=== PATIENT | male | born 1975 | race Caucasian/White ===

== ENCOUNTER → 2021-04-19 13:44 | Outpatient (BNVA) | payer MEDICARE, MEDICAID, SELFPAY | PROVIDERS: Family Provider Nurse Practitioner Family; PCP Nurse Practitioner Family; Visit Provider Nurse Practitioner Family | DX: K92.1 Melena (principal); R10.9 Unspecified abdominal pain; B19.20 Unspecified viral hepatitis C without hepatic coma; Z79.899 Other long term (current) drug therapy; Z13.6 Encounter for screening for cardiovascular disorders; K21.9 Gastro-esophageal reflux disease without esophagitis; L28.2 Other prurigo; M54.9 Dorsalgia, unspecified; F15.10 Other stimulant abuse, uncomplicated; E55.9 Vitamin D deficiency, unspecified; F32.9 Major depressive disorder, single episode, unspecified; Z87.898 Personal history of other specified conditions | CPT/HCPCS: 80053; 80061; 81003; 82150; 82306; 82550; 83036; 83690; 84439; 84443; 85025; 86803; 87522; 87806 ==

== ENCOUNTER 2021-05-16 08:24 | Outpatient (CLI) | payer MEDICARE, MEDICAID, SELFPAY ==
--- NOTE | 2021-05-16 08:45 | US_ITS ---
WS: [id number] Complete ABDOMINAL ULTRASOUND HISTORY: R10.9 - Unspecified abdominal pain COMPARISON: None available. Liver: 14.6 cm in length. Liver is normal size and echogenicity with no mass or intrahepatic dilatati on. Gallbladder: Normally distended with no gallstones, wall thickening or pericholecystic fluid. Gallbladder wall thickness: 0.3 cm. Pancreas: Normal size and echogenicity. CBD: 0.2 cm. Right kidney: 10.1 cm x 5.8 cm x 5.3 cm. No mass, cortical thickening or hydronephrosis. Left kidney: 9.9 cm x 5.6 cm x 4.8 cm. No mass, cortical thickening or hydronephrosis. Spleen: Normal size and echogenicity. Abdominal aorta and IVC are within normal limits. No ascites. US/US abdomen complete* [id number] IMPRESSION: Normal complete abdomen ultrasound.
== END 2021-05-16 08:25 | disposition home or self-care (01) ==
PROVIDERS: PCP Nurse Practitioner Family; Visit Provider Nurse Practitioner Family
DX: R10.9 Unspecified abdominal pain (principal)
CPT/HCPCS: 76700

== ENCOUNTER → 2021-05-23 14:53 | Outpatient (BNVA) | payer MEDICARE, MEDICAID, SELFPAY | PROVIDERS: PCP Nurse Practitioner Family; Visit Provider Nurse Practitioner Family | DX: R11.2 Nausea with vomiting, unspecified (principal); Z01.812 Encounter for preprocedural laboratory examination; K21.9 Gastro-esophageal reflux disease without esophagitis; F32.9 Major depressive disorder, single episode, unspecified | CPT/HCPCS: 87635 ==

== ENCOUNTER 2021-05-26 07:58 | Day surgery (SDC) | payer MEDICARE, MEDICAID, SELFPAY ==
[2021-05-26 08:19] VITALS: BP 127/85; PULSE 84; RESP 18; TEMP 36.4; O2SAT 100
--- NOTE | 2021-05-26 08:51 | P.ANESASSM_ITS ---
Documented by User: Werner Franco Jr, [employer] CLAIM[employer] ADJUSTER 05/26/21 08:55 Pre-Anesthetic Assessment Pre-Anesthetic Assessment: Height/Weight: Height 1.8 m Weight 74.843 kg Temp Pulse Resp BP Pulse Ox 97.6 F 84 18 127/85 100 05/26/21 08:19 05/26/21 08:19 05/26/21 08:19 05/26/21 08:19 05/26/21 08:19 Preop Diagnosis: N/V Proposed Procedure: Operation Date: 05/26/21 09:00 Proposed Procedures p EGD 19241 R11.2(Not Applicable) - Barry Coffman MD Familial anesthetic complications: none Was Beta Nikole taken within 24 hours: N/A Was Clonidine taken within 24 hours: N/A Last intake: Intake Last Liquid Date 06/25/21 Last Liquid Time 23:00 Last Solid Date 05/25/21 Last Solid Time 23:00 Last Intake: 23:00 Social: Social History: Tobacco and No alcohol Packs per day: 2ppd Pack years: 30 Exam: Pre-Anes Outpt Exam: alert, oriented x 3, clear to auscultation bilaterally and regular rate & rhythm Airway: Submandibular: WNL Cervical ROM: WNL MP: 1 Dentition: False (upper, 4 teeth on bottom) Pulmonary: Pulmonary: COPD, JOHNSON and SOB CV/HEM: CV/HEM: None reported : : None reported Hepatic: Hepatic: Cirrohsis (C, treated) GI: GI: GERD Metabolic: Metabolic: None reported Musc/skel: Musc/skel: OA/DJD Neuropsych: Neuropsych: Anxiety, Bipolar, Depression, HAYNES and Seizure (last grand mal 2-3 weeks ago) Anesthetic Plan: ASA status: 3 Anesthesia: MAC PFSH Anesthesia PFSH: Medical History Abdominal pain Back pain Back pain Blood in stool Chronic nausea Depression Epilepsy GERD (gastroesophageal reflux disease) Hepatitis C without hepatic coma History of intravenous drug use in remission Hypertension screen Methamphetamine abuse, episodic Nausea Pruritic rash Vitamin D deficiency Vitamin D deficiency Surgical History Status post knee surgery Family History Other CAD (coronary artery disease) Cancer Hypertension Social History Alcohol intake: former Data Anesthesia Cardiac Studies: No Data to Display Documented by User: Willard Key 05/26/21 14:40 PFSH Anesthesia PFSH: Medical History Abdominal pain Back pain Back pain Blood in stool Chronic nausea Depression Epilepsy GERD (gastroesophageal reflux disease) Hepatitis C without hepatic coma History of intravenous drug use in remission Hypertension screen Methamphetamine abuse, episodic Nausea Pruritic rash Vitamin D deficiency Vitamin D deficiency Surgical History Status post knee surgery Family History Other CAD (coronary artery disease) Cancer Hypertension Social History Alcohol intake: former Data Anesthesia Cardiac Studies: No Data to Display
[2021-05-26] MEDS: sodium chloride 0.9% 1,000 ML 30 ML IV (08:55)
--- NOTE | 2021-05-26 09:20 | P.HP_ITS ---
Same Day Surgery H&P Indication for Procedure/HPI DATE OF PROCEDURE: May 26, 2021 CHIEF COMPLAINT/INDICATIONFOR SURGICAL PROCEDURE: Nausea and vomiting PREOP DIAGNOSIS: N/V PLANNED PROCEDRUE: Operation Date: 05/26/21 09:00 Proposed Procedures p EGD 53711 R11.2(Not Applicable) - Barry Coffman MD Medications/Allergies* Home Medications Medication Instructions Recorded Confirmed Type duloxetine 30 mg capsule,delayed 30 mg PO DAILY 04/19/21 05/26/21 History release duloxetine 60 mg capsule,delayed 60 mg PO DAILY 04/19/21 05/26/21 History release levetiracetam 750 mg tablet 1,500 mg PO BID tab 04/19/21 05/26/21 History paliperidone palmitate 234 mg/1.5 234 mg IM Q30D 04/19/21 05/26/21 History mL intramuscular syringe prazosin 5 mg capsule 5 mg PO DAILY 04/19/21 05/26/21 History trazodone 300 mg tablet 300 mg PO DAILY 04/19/21 05/26/21 History Allergies/Adverse Reactions Allergy/AdvReac Type Severity Reaction Status Date / Time aspirin [From [employer] Aspirin] Allergy ulcer Verified 05/26/21 08:24 Current Medications: Generic Name Dose Route Start Last Admin Trade Name Freq PRN Reason Stop Dose Admin Sodium Chloride 1,000 mls @ 30 mls/hr 05/26/21 08:15 05/26/21 08:55 Sodium Chloride 0.9% IV 30 mls/hr .Q24H JONO Administration Pertinent History/Comorbid Conditions* Medical History (Updated 05/17/21 @ 14:59 by Barry Coffman MD) Abdominal pain Back pain Back pain Blood in stool Chronic nausea Depression Epilepsy GERD (gastroesophageal reflux disease) Hepatitis C without hepatic coma History of intravenous drug use in remission Hypertension screen Methamphetamine abuse, episodic Nausea Pruritic rash Vitamin D deficiency Vitamin D deficiency Surgical History (Updated 04/19/21 @ 13:39 by ISAAK Gonzales) Status post knee surgery Family History (Updated 04/19/21 @ 13:23 by Natalie Briggs LPN) CAD (coronary artery disease) Cancer Hypertension Social History Alcohol intake: former Pertinent Exam Findings alert, oriented x 3, clear to auscultation bilaterally, regular rate & rhythm, operative site marked and procedure specific exam findings Recommendations Surgery/Procedure today Coding Level of Care Code Acute [employer] for Chg Fwd
[2021-05-26 09:30] VITALS: BP 117/81; PULSE 79; RESP 16; TEMP 36.7; O2SAT 98
[2021-05-26 09:41] VITALS: BP 122/79; PULSE 75; RESP 20; O2SAT 100
== END 2021-05-26 10:10 | disposition home or self-care (01) ==
PROVIDERS: PCP Nurse Practitioner Family; Visit Provider Internal Medicine
PROC: 0DJ08ZZ Inspection of Upper Intestinal Tract, Via Natural or Artificial Opening Endoscopic (ICD-10-PCS; CPT 43235; principal; 2021-05-26 09:00)
DX: R11.2 Nausea with vomiting, unspecified (principal); Z86.19 Personal history of other infectious and parasitic diseases; E55.9 Vitamin D deficiency, unspecified; Z82.49 Family history of ischemic heart disease and other diseases of the circulatory system; F17.210 Nicotine dependence, cigarettes, uncomplicated
CPT/HCPCS: 43235; 96360; J2704; J7030

== ENCOUNTER → 2021-09-19 11:20 | Outpatient (BNVA) | payer MEDICARE, MEDICAID, SELFPAY | PROVIDERS: PCP Nurse Practitioner Family; Visit Provider Nurse Practitioner | DX: F41.9 Anxiety disorder, unspecified (principal); F32.9 Major depressive disorder, single episode, unspecified; F17.218 Nicotine dependence, cigarettes, with other nicotine-induced disorders; F51.01 Primary insomnia; F51.5 Nightmare disorder; F15.20 Other stimulant dependence, uncomplicated; F12.20 Cannabis dependence, uncomplicated; F43.12 Post-traumatic stress disorder, chronic; F41.1 Generalized anxiety disorder | CPT/HCPCS: 99215 ==

== ENCOUNTER → 2021-11-02 12:28 | Outpatient (BNVA) | payer MEDICARE, MEDICAID, SELFPAY | PROVIDERS: PCP Nurse Practitioner Family; Visit Provider Nurse Practitioner | DX: F43.12 Post-traumatic stress disorder, chronic (principal); F41.9 Anxiety disorder, unspecified; F32.9 Major depressive disorder, single episode, unspecified; F51.01 Primary insomnia; F51.5 Nightmare disorder; F17.218 Nicotine dependence, cigarettes, with other nicotine-induced disorders; F15.20 Other stimulant dependence, uncomplicated; F12.20 Cannabis dependence, uncomplicated | CPT/HCPCS: 96372; 99214 ==

== ENCOUNTER → 2021-11-09 12:30 | Outpatient (BNVA) | payer MEDICARE, MEDICAID, SELFPAY | PROVIDERS: PCP Nurse Practitioner Family; Visit Provider Nurse Practitioner | DX: F43.12 Post-traumatic stress disorder, chronic (principal); F41.9 Anxiety disorder, unspecified; F32.9 Major depressive disorder, single episode, unspecified; F51.01 Primary insomnia; F51.5 Nightmare disorder | CPT/HCPCS: 96372; 99214 ==

== ENCOUNTER → 2021-11-20 15:07 | Outpatient (BNVA) | payer MEDICARE, MEDICAID, SELFPAY | PROVIDERS: PCP Nurse Practitioner Family; Visit Provider Nurse Practitioner Family | DX: D64.9 Anemia, unspecified (principal); E55.9 Vitamin D deficiency, unspecified; Z13.6 Encounter for screening for cardiovascular disorders; Z79.899 Other long term (current) drug therapy; R42 Dizziness and giddiness; K92.1 Melena | CPT/HCPCS: 80053; 80061; 81003; 82306; 82607; 83036; 83550; 83921; 84439; 84443; 85025 ==

== ENCOUNTER → 2021-11-22 16:14 | Outpatient (BNVA) | payer MEDICARE, MEDICAID, SELFPAY | PROVIDERS: PCP Nurse Practitioner Family; Visit Provider Nurse Practitioner Family | DX: K92.1 Melena (principal) | CPT/HCPCS: 82270 ==

== ENCOUNTER → 2021-12-05 11:38 | Outpatient (BNVA) | payer MEDICARE, MEDICAID, SELFPAY | PROVIDERS: PCP Nurse Practitioner Family; Visit Provider Nurse Practitioner | DX: F17.210 Nicotine dependence, cigarettes, uncomplicated (principal); F12.20 Cannabis dependence, uncomplicated; F15.21 Other stimulant dependence, in remission; F43.12 Post-traumatic stress disorder, chronic; F41.9 Anxiety disorder, unspecified; F32.9 Major depressive disorder, single episode, unspecified; F51.5 Nightmare disorder; F51.01 Primary insomnia | CPT/HCPCS: 96372; 99214 ==

== ENCOUNTER → 2021-12-11 13:22 | Outpatient (BNVA) | payer MEDICARE, MEDICAID, SELFPAY | PROVIDERS: PCP Nurse Practitioner Family; Referring Provider Nurse Practitioner Family; Visit Provider Specialist | DX: G40.909 Epilepsy, unspecified, not intractable, without status epilepticus (principal); G40.409 Other generalized epilepsy and epileptic syndromes, not intractable, without status epilepticus; F17.210 Nicotine dependence, cigarettes, uncomplicated | CPT/HCPCS: 99204 ==

== ENCOUNTER → 2022-01-04 13:07 | Outpatient (BNVA) | payer MEDICARE, MEDICAID, SELFPAY | PROVIDERS: PCP Nurse Practitioner Family; Visit Provider Nurse Practitioner | DX: Z79.899 Other long term (current) drug therapy (principal); F43.12 Post-traumatic stress disorder, chronic; F41.9 Anxiety disorder, unspecified; F32.9 Major depressive disorder, single episode, unspecified; F51.01 Primary insomnia; F51.5 Nightmare disorder; F17.218 Nicotine dependence, cigarettes, with other nicotine-induced disorders; F12.20 Cannabis dependence, uncomplicated; F15.21 Other stimulant dependence, in remission | CPT/HCPCS: 96372; 99214 ==

== ENCOUNTER 2022-01-26 13:02 | Outpatient (CLI) | payer MEDICARE, MEDICAID, SELFPAY ==
--- NOTE | 2022-01-26 13:12 | CT_ITS ---
WS: [id number] CT HEAD TECHNIQUE: Noncontrast CT of the head obtained from the skullbase to the vertex. CLINICAL INFORMATION: R55 - Syncope and collapse COMPARISON: MRI and CT September 2017 DLP: 1008.[address] scans at [facility] use at least one of these dose optimization techniques: automated e xposure control; mA and/or kV adjustment per patient size (includes targeted exams where dose is matc hed to clinical indication); or iterative reconstruction. FINDINGS: No evidence of intracranial hemorrhage or mass effect. Ventricular system and basal cisterns are shaikh nt. No extra-axial fluid collections. No evidence of mass or mass effect. Normal mullen-white different iation. Mastoid air cells are well aerated. Mild mucosal thickening in the ethmoid air cells. Paranasal sinus es are otherwise well aerated. Normal posterior nasopharynx. CT/CT head wo con* [id number] IMPRESSION: 1. No evidence of intracranial hemorrhage or mass effect. 2. Mild mucosal thickening in the ethmoid air cells. 3. Mild posterior parietal parenchymal volume loss near the vertex better appr eciated on the prior MRI. 4. No acute intracranial findings.
== END 2022-01-26 13:03 | disposition home or self-care (01) ==
LOC: RAD 13:04
PROVIDERS: PCP Nurse Practitioner Family; Visit Provider Family Medicine
DX: R55 Syncope and collapse (principal)
CPT/HCPCS: 70450

== ENCOUNTER → 2022-02-02 09:10 | Outpatient (BNVA) | payer MEDICARE, MEDICAID, SELFPAY | PROVIDERS: PCP Nurse Practitioner Family; Visit Provider Nurse Practitioner | DX: F43.12 Post-traumatic stress disorder, chronic (principal); F41.9 Anxiety disorder, unspecified; F32.9 Major depressive disorder, single episode, unspecified; F51.01 Primary insomnia; F51.5 Nightmare disorder; F17.218 Nicotine dependence, cigarettes, with other nicotine-induced disorders; F12.20 Cannabis dependence, uncomplicated; F15.21 Other stimulant dependence, in remission; Z79.899 Other long term (current) drug therapy | CPT/HCPCS: 99214 ==

== ENCOUNTER → 2022-03-15 13:34 | Outpatient (BNVA) | payer MEDICARE, MEDICAID, SELFPAY | PROVIDERS: PCP Nurse Practitioner Family; Visit Provider Specialist | DX: G56.03 Carpal tunnel syndrome, bilateral upper limbs (principal); M65.331 Trigger finger, right middle finger; M65.341 Trigger finger, right ring finger; M65.4 Radial styloid tenosynovitis [de Quervain] | CPT/HCPCS: 73110; 99214; 99215 ==

== ENCOUNTER → 2022-07-04 10:23 | Outpatient (BNVA) | payer MEDICARE, MEDICAID, SELFPAY | PROVIDERS: PCP Nurse Practitioner Family; Referring Provider Specialist; Visit Provider Specialist | DX: G56.03 Carpal tunnel syndrome, bilateral upper limbs (principal); R56.9 Unspecified convulsions; R55 Syncope and collapse; F15.10 Other stimulant abuse, uncomplicated | CPT/HCPCS: 95812; 95816; 95910; 95912 ==

== ENCOUNTER → 2022-07-30 10:09 | Outpatient (BNVA) | payer MEDICARE, MEDICAID, SELFPAY | PROVIDERS: PCP Nurse Practitioner Family; Visit Provider Specialist | DX: G56.03 Carpal tunnel syndrome, bilateral upper limbs (principal); M65.341 Trigger finger, right ring finger; M65.331 Trigger finger, right middle finger; M65.4 Radial styloid tenosynovitis [de Quervain]; I73.00 Raynaud's syndrome without gangrene | CPT/HCPCS: 99214; 99215 ==

== ENCOUNTER 2022-08-07 06:06 | Day surgery (SDC) | payer MEDICARE, MEDICAID, SELFPAY ==
[2022-08-06 09:05] VITALS: BMI 26.4
[2022-08-07] VITALS (8 sets, daily range): BP systolic 123–151; BP diastolic 74–96; PULSE 63–83; RESP 12–18; TEMP 36.4–36.6; O2SAT 94–100
[2022-08-07] MEDS: CELEcoxib 200 mg Capsule 400 MG PO (08:20)
[2022-08-07] MEDS: sodium chloride 0.9% 1,000 ML 30 ML IV (08:45)
[2022-08-07] MEDS: acetaminophen 1,000 MG/100 ML PIGGYBACK 400 MG IV (09:18)
--- NOTE | 2022-08-07 11:55 | W.PM.OPSUD ---
Surgery/Procedure H&P Update DATE OF PROCEDURE: August 07, 2022 DATE H&P PERFORMED: 07/30/22 H&P UPDATE INFORMATION: I have reviewed H&P completed within last 30 days, I have examined patient prior to procedure, No changes to prior documentation and [place] is [place] [facility] date indicated PREOP DIAGNOSIS: Right carpal tunnel syndrome with triggering long and ring fingers PLANNED PROCEDURE: Operation Date: 08/07/22 10:40 Proposed Procedures p RIGHT CARPAL TUNNEL RELEASE WITH LONG AND RING FINGER TRIGGER RELEASE [id number] G56.00,M65.30(Right) - Nancy Perez MD s Trigger Finger Release(Right) - Nancy Perez MD Related Problem List Diagnoses (1) Carpal tunnel syndrome on right: (2) Acquired trigger finger of right ring finger: (3) Acquired trigger finger of right middle finger:
[2022-08-07] MEDS: ceFAZolin 2,000 MG in sodium chloride 0.9% (plus) 50 ML 100 MG IV (12:05)
--- NOTE | 2022-08-07 12:37 | ANES.PREANE2 ---
Pre-Anesthetic Assessment Height/Weight: Height 1.8 m Weight 86.183 kg Temp Pulse Resp BP Pulse Ox O2 Del Method 97.9 F 83 16 123/74 97 08/07/22 08:08 08/07/22 08:08 08/07/22 08:08 08/07/22 08:08 08/07/22 08:08 08/07/22 08:08 Preop Diagnosis: Right carpal tunnel syndrome with triggering long and ring fingers Operation Date: 08/07/22 10:40 Proposed Procedures p RIGHT CARPAL TUNNEL RELEASE WITH LONG AND RING FINGER TRIGGER RELEASE [id number] G56.00,M65.30(Right) - Nancy Perez MD s Trigger Finger Release(Right) - Nancy Perez MD Familial anesthetic complications: none Was Beta Nikole taken within 24 hours: N/A Was Clonidine taken within 24 hours: N/A Last intake: Intake Last Liquid Date 08/06/22 Last Liquid Time 20:00 Last Solid Date 08/06/22 Last Solid Time 20:00 Social Tobacco and No alcohol Drug abuse hx Exam alert, oriented x 3 and regular rate & rhythm Airway Submandibular: within normal limits Cervical ROM: within normal limits Mallampati: Class II Pulmonary Chronic Obstructive Pulmonary Disease CV/HEM Anemia Hepatic Hepatitis (C) GI Gastroesophageal Reflux Disease Neuropsych Anxiety, Depression and Seizure Anesthetic Plan ASA status: 3 Anesthesia: General Medications/Allergies Home Medications Medication Instructions Recorded Confirmed Last Taken Type levetiracetam 750 mg tablet 1,500 mg PO BID 30 days #120 tabs 12/11/21 08/07/22 08/07/22 Rx (Keppra) omeprazole 40 mg capsule,delayed 40 mg PO DAILY 30 days #90 caps 04/30/22 08/07/22 08/07/22 Rx release fluoxetine 20 mg capsule (Prozac) 20 mg PO .morning #30 caps 07/23/22 08/07/22 08/07/22 Rx paliperidone palm (3-month) 546 546 mg (1.75 mL) IM .every 3 07/23/22 08/07/22 1 Month Ago Rx mg/1.75 mL intramuscular syringe months. #1.75 mL ~07/08/22 (Invega Trinza) trazodone 300 mg tablet 300 mg PO BEDTIME #90 tabs 07/23/22 08/07/22 08/06/22 Rx prazosin 5 mg capsule 7 mg PO BEDTIME 08/06/22 08/07/22 08/06/22 History naproxen sodium 220 mg tablet 220 mg PO BID PRN Pain 08/07/22 08/07/22 08/07/22 History (Aleve) Allergies Allergy/AdvReac Type Severity Reaction Status Date / Time aspirin [From Anel Aspirin] Allergy ulcer Verified 08/07/22 08:15 Current Medications Generic Name Dose Route Start Last Admin Trade Name Connie PRN Reason Stop Dose Admin Sodium Chloride 1,000 mls @ 30 mls/hr 08/07/22 08:00 08/07/22 08:45 Sodium Chloride 0.9% IV 08/08/22 07:59 30 mls/hr .Q24H JONO Administration PFSH Anesthesia Medical History Abdominal pain Anemia Anxiety and depression Back pain Back pain Black tarry stools Blood in stool Cannabis dependence, uncomplicated Carpal tunnel syndrome of left wrist Chronic nausea Depression Epilepsy GERD (gastroesophageal reflux disease) Hepatitis C without hepatic coma History of intravenous drug use in remission Hypertension screen Insomnia Medication management Methamphetamine abuse, episodic Nausea Nicotine dependence, cigarettes, with other nicotine-induced disorders Nightmare Other stimulant dependence, uncomplicated Otitis media of both ears Post-traumatic stress disorder, chronic Pruritic rash Psychiatric care Vitamin B12 deficiency (dietary) anemia Vitamin D deficiency Vitamin D deficiency Wound abscess Surgical History Status post knee surgery Family History Other CAD (coronary artery disease) Cancer Hypertension Social History Smoking and tobacco status: current every day smoker cigarettes Packs smoked per day: 1.5 Years cigarettes smoked: 40 Quit status (tobacco): has tried quititng Number of times tried to quit tobacco: 2 Second hand smoke exposure: No Alcohol intake: former Data Anesthesia Cardiac Studies: No Data to Display
--- NOTE | 2022-08-07 13:47 | PM.OP ---
Operative Report Date of procedure: August 07, 2022 Pre-op diagnosis: Right carpal tunnel syndrome with triggering long and ring fingers Post-op diagnosis: Right carpal tunnel syndrome with triggering long and ring fingers Post-op findings: Very tight carpal canal with purplish discoloration of the median nerve. Very tight A1 pulleys, tendon changes to the long finger flexor tendons. Procedure done: Right carpal tunnel release, release of right long and ring finger triggering Specimens removed/disposition: None Pathology: none sent Surgeon: Nancy Perez Anesthesia: General (LMA, ASA 3) Estimated blood loss (mL): 2 Tourniquet time (min): 46 (At 250 mmHg) IV fluids (mL): 800 Urine output (mL): 0 (No Murdock) Complications: None Findings: Very tight carpal canal with purplish discoloration of the nerve. Thickened and tight A1 pulleys long and ring fingers with tendon damage, minimal, to the long finger flexors. Condition: stable Disposition: PACU (Then to same-day surgery for discharge to home) Brief History: This 46-year-old gentleman presented to my office with multiple complaints. Primarily, he has bilateral carpal tunnel syndrome with the right being worse than the left. He also has triggering of the long and ring fingers of the right hand. He complains of Raynaud's type phenomenon and he has de Quervain's tenosynovitis on the right hand as well. We discussed surgical intervention. We proceeded with carpal tunnel release and release of triggering of the long and ring fingers. He was advised that the de Quervain's would need to be at a separate occasion. Consents were signed and questions were answered. The patient was scheduled for surgical intervention and underwent this uneventfully today. Procedure: The patient was brought to the operating theater. He was transferred to the operating room table. Patient had a general anesthetic per LMA, ASA 3. The arm was exsanguinated, and the tourniquet was elevated to 250 mmHg for a total tourniquet time of 46 minutes. The patient was also given Ancef 2 g preoperatively. The arm was then prepped and draped with DuraPrep in usual fashion with the arm draped free. A surgical pause was performed. At the time, the surgical pause, we confirmed the site and side of surgery. We also confirmed the patient's identity, appropriate and timely administration of preoperative antibiotics and preoperative surgical markings. An incision was then made along the thenar crease. The incision crossed the wrist joint in a curvilinear fashion. Dissection continued through skin and soft tissues using a scalpel. The palmaris longus was identified along with the transverse carpal ligament. Each of these was released carefully to avoid injury to the median nerve. We were able to dissect gently into the carpal canal which was noted to be quite tight with significant compression across the median nerve. After release of the transverse carpal ligament, the nerve was visualized and was found to have purplish discoloration as well as some hourglass deformity at the site of compression. The canal was subsequently palpated to assure there was no bony encroachment upon the canal. There was a quite thickened fibrous tissue within the canal, and this was carefully opened longitudinally as well. The canal was then palpated distally and proximally to assure that my small finger was passed easily without impingement. Finding this to be so, attention was directed to closure. The wound was irrigated with ropivacaine plain. It was then closed with 3-0 nylon in an interrupted mattress fashion. At this point, attention was directed to the palm for release of triggering of the long and ring fingers. An incision was made along the distal palmar crease beneath the long and ring fingers. Dissection continued through the skin to the subcutaneous tissues using a scalpel. Blunt dissection was then utilized to spread soft tissues and allow access to the A1 rose. Each A1 rose was identified. It was then incised longitudinally and sharply using a knife. This was accomplished without difficulty and atraumatically. Once the A1 pulleys were released, tendons were brought up out of the wound and evaluated. There was noted to be tendon damage on the long finger tendon; however, this was very mild and did not threaten the viability of the tendons. Below each finger, the tendons were returned to normal position. We then irrigated the wound and subsequently closed it with 3-0 nylon with an interrupted mattress type suture. Following closure of the wounds, the wound was injected with bupivacaine plain into the subcutaneous tissues as a local anesthetic. Sterile dressing was then placed consisting of OpSite, fluffed fluffs, sterile soft roll, and an Stephen wrap. The patient was returned to recovery in satisfactory condition. He will be discharged home to follow-up with de in the office. There were no complications and no specimens. Related Problem List Diagnoses (1) Carpal tunnel syndrome on right: (2) Acquired trigger finger of right ring finger: (3) Acquired trigger finger of right middle finger:
--- NOTE | 2022-08-07 13:49 | SUR.PHASEI ---
1335 PT TO PACU 5 AWAKES EASILY, VERBALIZED NO PAIN RT HAND ELEVATED ON SELF, DISTAL FINGERS PINK WARM WITH FAST CAP REFILL NOTED IV TO LT FA WITH NS 150 ML AT KVO RATE PER GRAVITY ID BRACELET TO LT WRIST PT ID'D WITH 2 IDENTIFIERS, PT MOVES RT FINGERS TO COMMAND SKIN PINK WARM WITH FAST CAP REFILL. NOTED. MONITOR SR WITH NO ECTOPY NOTED.
--- NOTE | 2022-08-07 14:01 | SUR.PHASEI ---
1355 PT TO OPS AWAKE ALERT ORIENTED TALKATIVE WITH AYAAN VÁZQUEZ.
--- NOTE | 2022-08-07 16:12 | ANE.PACU2 ---
Inpatient post-anesthesia follow up: Airway intact: Yes Vital signs: Temperature 97.6 F Pulse Rate 63 Respiratory Rate 18 Blood Pressure 145/95 Pulse Oximetry 98 Oxygen Delivery Me thod Room Air Oxygen Flow Rate 8 Fraction of Inspir ed Oxygen Hydration adequate: Yes Nausea and vomiting: No Pain level: 2 Mental status: Baseline
== END 2022-08-07 15:16 | disposition home or self-care (01) ==
PROVIDERS: Visit Provider Specialist
PROC: (CPT 64721; principal; 2022-08-07 10:30)
PROC: (CPT 26055; 2022-08-07 10:30)
DX: G56.01 Carpal tunnel syndrome, right upper limb (principal); M65.341 Trigger finger, right ring finger; M65.331 Trigger finger, right middle finger; J44.9 Chronic obstructive pulmonary disease, unspecified; Z86.19 Personal history of other infectious and parasitic diseases; F17.210 Nicotine dependence, cigarettes, uncomplicated
CPT/HCPCS: 26055 ×2; 64721; J0131; J0690; J1100; J2405; J2704; J3010; J3490; J7030

== ENCOUNTER 2022-08-24 06:00 | Outpatient (RCR) | payer MEDICARE, MEDICAID, SELFPAY | END 2022-09-12 23:59 | disposition home or self-care (01) | LOC: WPT 06:00 | PROVIDERS: Visit Provider Specialist | DX: G56.01 Carpal tunnel syndrome, right upper limb (principal) | CPT/HCPCS: 97110; 97161 ==

== ENCOUNTER 2022-10-14 06:00 | Outpatient (RCR) | payer MEDICARE, MEDICAID, SELFPAY | END 2022-11-13 23:59 | disposition home or self-care (01) | LOC: WPT 06:00 | PROVIDERS: Visit Provider Specialist | DX: Z79.899 Other long term (current) drug therapy (principal) | CPT/HCPCS: 97110; 97164; 97530 ==

== ENCOUNTER → 2022-10-22 09:30 | Outpatient (BNVA) | payer MEDICARE, MEDICAID, SELFPAY | PROVIDERS: Visit Provider Specialist | DX: S69.91XD Unspecified injury of right wrist, hand and finger(s), subsequent encounter (principal); Z98.890 Other specified postprocedural states; W19.XXXD Unspecified fall, subsequent encounter | CPT/HCPCS: 73110; 99213 ==

== ENCOUNTER 2022-11-14 06:00 | Outpatient (RCR) | payer MEDICARE, MEDICAID, SELFPAY | END 2022-12-11 23:59 | disposition home or self-care (01) | LOC: WPT 06:00 | PROVIDERS: Visit Provider Specialist | DX: G56.01 Carpal tunnel syndrome, right upper limb (principal) | CPT/HCPCS: 97110; 97112 ==

== ENCOUNTER → 2023-03-25 09:24 | Outpatient (BNVA) | payer MEDICARE, MEDICAID, SELFPAY | PROVIDERS: PCP Nurse Practitioner; Referring Provider Specialist; Visit Provider Specialist | DX: G40.319 Generalized idiopathic epilepsy and epileptic syndromes, intractable, without status epilepticus (principal); F15.10 Other stimulant abuse, uncomplicated | CPT/HCPCS: 99215 ==

== ENCOUNTER → 2023-03-26 11:11 | Outpatient (BNVA) | payer MEDICARE, MEDICAID, SELFPAY | PROVIDERS: PCP Nurse Practitioner; Visit Provider Nurse Practitioner | DX: Z79.899 Other long term (current) drug therapy (principal); F32.9 Major depressive disorder, single episode, unspecified; F41.9 Anxiety disorder, unspecified; Z13.6 Encounter for screening for cardiovascular disorders | CPT/HCPCS: 80053; 80061; 83036; 84443; 85025 ==

== ENCOUNTER 2023-06-11 07:53 | Outpatient (CLI) | payer MEDICARE, MEDICAID, SELFPAY ==
--- NOTE | 2023-06-11 08:45 | US_ITS ---
WS: [id number] Complete ABDOMINAL ULTRASOUND HISTORY: R11.2 - Nausea with vomiting, unspecified COMPARISON: 05/16/2021 Liver: 15.3 cm in length. Normal size liver. There is a very slight area of increased echogenicity to hay the diaphragm measuring 1.8 x 2.8 x 2.7 cm. This may be an area of hepatic steatosis or hemangio ma. No increased vascularity. No displacement of the adjacent vessels. No bile duct dilatation. Portal Vein: Normal hepatopetal flow with monophasic waveform. Gallbladder: Normally distended gallbladder with no stones or wall thickening. CBD: 0.4 cm Pancreas: Normal size and echogenicity. Right kidney: 10.8 cm x 5.7 x 6.6 cm. Cortex: 1.2 cm. Normal size and echogenicity. No hydronephrosis or mass. Left kidney: 11.0 cm x 6.5 cm x 6.3 cm. Cortex: 1.2 cm. Normal size and echogenicity. No hydronephrosis or mass. Spleen: Normal size spleen measures 9.7 cm. Aorta and IVC: Unremarkable abdominal aorta and IVC. Impression: 1. Mild heterogeneity within the liver. Hepatic steatosis versus a small hemangioma. No solid mass. 2. Normal gallbladder. 3. Normal kidneys.
== END 2023-06-11 07:54 | disposition home or self-care (01) ==
PROVIDERS: PCP Nurse Practitioner; Visit Provider Nurse Practitioner
DX: R11.2 Nausea with vomiting, unspecified (principal); K76.89 Other specified diseases of liver
CPT/HCPCS: 76700

== ENCOUNTER → 2023-06-12 08:20 | Outpatient (BNVA) | payer MEDICARE, MEDICAID, SELFPAY | PROVIDERS: PCP Nurse Practitioner; Visit Provider Nurse Practitioner | DX: B19.20 Unspecified viral hepatitis C without hepatic coma (principal) | CPT/HCPCS: 86705; 86706; 86709; 86803; 87340; 87522 ==

== ENCOUNTER → 2023-07-09 10:16 | Outpatient (BNVA) | payer MEDICARE, MEDICAID, SELFPAY ==
[2023-06-18 16:42] VITALS: BP 122/84; BMI 25.6
== END ==
PROVIDERS: PCP Nurse Practitioner; Referring Provider Nurse Practitioner; Visit Provider Surgery
DX: R11.2 Nausea with vomiting, unspecified (principal)
CPT/HCPCS: 99203

== ENCOUNTER → 2023-08-14 10:31 | Outpatient (BNVA) | payer MEDICARE, MEDICAID, SELFPAY ==
[2023-06-18 16:42] VITALS: BP 122/84; BMI 25.6
== END ==
PROVIDERS: PCP Nurse Practitioner; Visit Provider Specialist
DX: G40.319 Generalized idiopathic epilepsy and epileptic syndromes, intractable, without status epilepticus (principal); R42 Dizziness and giddiness
CPT/HCPCS: 36415; 80164; 80177; 99213

== ENCOUNTER 2023-09-26 07:56 | Day surgery (SDC) | payer MEDICARE, MEDICAID, SELFPAY ==
[2023-06-18 16:42] VITALS: BP 122/84; BMI 25.6
[2023-09-26 08:27] VITALS: BP 139/98; PULSE 77; RESP 18; TEMP 36.6; O2SAT 96; BMI 25.1
[2023-09-26] MEDS: sodium chloride 0.9% 1,000 ML 30 ML IV (08:38)
--- NOTE | 2023-09-26 08:55 | W.PM.OPSFHP ---
Same Day Surgery H&P Indication for Procedure/HPI DATE OF PROCEDURE: September 26, 2023 CHIEF COMPLAINT/INDICATIONFOR SURGICAL PROCEDURE: nausea and vomit PREOP DIAGNOSIS: nausea and vomit PLANNED PROCEDURE: Operation Date: 09/26/23 09:15 Proposed Procedures p EGD 61258,R11.2,K21.9(Not Applicable) - Sesar Gutierrez MD Medications/Allergies* Home Medications Medication Instructions Recorded Confirmed Type levetiracetam 750 mg tablet 750 mg PO BID 09/24/23 09/26/23 History (Keppra) paliperidone 6 mg tablet,extended 6 mg PO QAM 09/24/23 09/26/23 History release 24 hr (Invega) Allergies/Adverse Reactions Allergy/AdvReac Type Severity Reaction Status Date / Time aspirin [From Anel Aspirin] Allergy ulcer Verified 09/26/23 08:25 Current Medications: Generic Name Dose Route Start Last Admin Trade Name Freq PRN Reason Stop Dose Admin Sodium Chloride 1,000 mls @ 30 mls/hr 09/26/23 08:30 09/26/23 08:38 Sodium Chloride 0.9% IV 30 mls/hr .Q24H JONO Administration Pertinent History/Comorbid Conditions* Medical History (Updated 03/25/23 @ 10:59 by Sarah Rhodes MD) Major depressive disorder, recurrent severe without psychotic features Otitis media of both ears Vitamin B12 deficiency (dietary) anemia Medication management Anemia Black tarry stools Post-traumatic stress disorder, chronic Cannabis dependence, uncomplicated Other stimulant dependence, uncomplicated Nicotine dependence, cigarettes, with other nicotine-induced disorders Psychiatric care Insomnia Nightmare Carpal tunnel syndrome of left wrist Anxiety and depression Wound abscess Vitamin D deficiency Nausea Hypertension screen Vitamin D deficiency Abdominal pain Back pain Pruritic rash Hepatitis C without hepatic coma Chronic nausea Blood in stool Methamphetamine abuse, episodic History of intravenous drug use in remission GERD (gastroesophageal reflux disease) Epilepsy Depression Back pain Surgical History (Updated 04/19/21 @ 13:39 by ISAAK Gonzales) Status post knee surgery Family History (Updated 04/19/21 @ 13:23 by Natalie Briggs LPN) CAD (coronary artery disease) Cancer Hypertension Social History Smoking and tobacco/nicotine status: current every day tobacco/nicotine user cigarettes Packs smoked per day: 1.5 Years cigarettes smoked: 42 Quit status (tobacco/nicotine): has tried quititng Number of times tried to quit tobacco: 2 Second hand smoke exposure: Yes Alcohol intake: current Alcohol intake frequency: holidays/special occasions only Alcohol type: hard liquor Substance/Drug Use: current Substance/Drug use frequency: daily Other substance/drug use details: as much as I can Adopted: No Caregiver/support person: No Lives independently: No Household members: other Details: friend, friends son, and another room mate Housing: House Marital status: Single Number of children: 0 Highest education level completed: 11th Grade service: No Current occupational status: disabled Current occupational exposures/hazards: No Pets and animals: Yes Pets & animals: dog(s) Pets & animal details: I have a dog but togeter 5 dogs and 3 cats Leisure activites: other Leisure activities details: lack of interest in anything at this time Do you think of yourself as: Straight/Heterosexual Current gender identity: Male Bita/Nondenominational: None Special bita needs: No Agree to transfusion: No Pertinent Exam Findings alert, oriented x 3, clear to auscultation bilaterally and regular rate & rhythm Recommendations Surgery/Procedure today Coding Level of Care Code Acute Code for Yefrig Mary
--- NOTE | 2023-09-26 09:40 | P.ANESASSM_ITS ---
Pre-Anesthetic Assessment Height/Weight: Height 1.8 m Weight 81.647 kg Temp Pulse Resp BP Pulse Ox O2 Del Method 97.8 F 77 18 139/98 96 Room Air 09/26/23 08:27 09/26/23 08:27 09/26/23 08:27 09/26/23 08:27 09/26/23 08:27 09/26/23 08:27 Preop Diagnosis: nausea and vomit Operation Date: 09/26/23 09:15 Proposed Procedures p EGD 54961,R11.2,K21.9(Not Applicable) - Sesar Gutierrez MD Familial anesthetic complications: None Was Beta Nikole taken within 24 hours: N/A Was Clonidine taken within 24 hours: N/A Last intake: Intake Last Liquid Date 09/25/23 Last Liquid Time 19:00 Last Solid Date 09/25/23 Last Solid Time 19:00 Social Tobacco and No alcohol hx dug abuse Exam alert, oriented x 3, clear to auscultation bilaterally and regular rate & rhythm Airway Mallampati: Class III Dentition: other (no teeth) Hepatic Hepatitis (C) Neuropsych Seizure Anesthetic Plan ASA status: 3 Anesthesia: MAC Risk of > 500 ml blood loss (7ml/kg in children): No Medications/Allergies Home Medications Medication Instructions Recorded Confirmed Last Taken Type albuterol sulfate 90 mcg/actuation 2 puff inhalation Q6H PRN 11/06/22 09/26/23 09/22/23 Rx aerosol inhaler (Ventolin HFA) shortness of breath or wheezing #8.5 grams ibuprofen 600 mg tablet 600 mg PO TID PRN pain #90 tabs 07/15/23 09/26/23 09/22/23 Rx divalproex 500 mg tablet,delayed 500 mg PO BID 30 days #60 tabs 08/14/23 09/26/23 09/25/23 Rx release (Depakote) dexlansoprazole 30 mg 30 mg PO DAILY #30 caps 08/23/23 09/26/23 09/25/23 Rx capsule,biphase delayed release (Dexilant) desvenlafaxine succinate 50 mg 50 mg PO DAILY #30 tabs 09/12/23 09/26/23 09/25/23 Rx tablet,extended release 24 hr (Pristiq) mirtazapine 15 mg tablet (Remeron) 15 mg PO .HS #30 tabs 09/12/23 09/26/23 09/25/23 Rx prazosin 2 mg capsule 2 mg PO .HS #90 caps 09/12/23 09/26/23 09/25/23 Rx prazosin 5 mg capsule 5 mg PO BEDTIME #90 caps 09/12/23 09/26/23 09/25/23 Rx levetiracetam 750 mg tablet 750 mg PO BID 09/24/23 09/26/23 09/25/23 History (Keppra) paliperidone 6 mg tablet,extended 6 mg PO QAM 09/24/23 09/26/23 09/25/23 History release 24 hr (Invega) Allergies Allergy/AdvReac Type Severity Reaction Status Date / Time aspirin [From Anel Aspirin] Allergy ulcer Verified 09/26/23 08:25 Current Medications Generic Name Dose Route Start Last Admin Trade Name Freq PRN Reason Stop Dose Admin Sodium Chloride 1,000 mls @ 30 mls/hr 09/26/23 08:30 09/26/23 08:38 Sodium Chloride 0.9% IV 30 mls/hr .Q24H JONO Administration PFS Anesthesia Medical History Abdominal pain Anemia Anxiety and depression Back pain Back pain Black tarry stools Blood in stool Cannabis dependence, uncomplicated Carpal tunnel syndrome of left wrist Chronic nausea Depression Epilepsy GERD (gastroesophageal reflux disease) Hepatitis C without hepatic coma History of intravenous drug use in remission Hypertension screen Insomnia Major depressive disorder, recurrent severe without psychotic features Medication management Methamphetamine abuse, episodic Nausea Nicotine dependence, cigarettes, with other nicotine-induced disorders Nightmare Other stimulant dependence, uncomplicated Otitis media of both ears Post-traumatic stress disorder, chronic Pruritic rash Psychiatric care Vitamin B12 deficiency (dietary) anemia Vitamin D deficiency Vitamin D deficiency Wound abscess Surgical History Status post knee surgery Family History Other CAD (coronary artery disease) Cancer Hypertension Social History Smoking and tobacco/nicotine status: current every day tobacco/nicotine user cigarettes Packs smoked per day: 1.5 Years cigarettes smoked: 42 Quit status (tobacco/nicotine): has tried quititng Number of times tried to quit tobacco: 2 Second hand smoke exposure: Yes Alcohol intake: current Alcohol intake frequency: holidays/special occasions only Alcohol type: hard liquor Substance/Drug Use: current Substance/Drug use frequency: daily Other substance/drug use details: as much as I can Adopted: No Caregiver/support person: No Lives independently: No Household members: other Details: friend, friends son, and another room mate Housing: House Marital status: Single Number of children: 0 Highest education level completed: 11th Grade service: No Current occupational status: disabled Current occupational exposures/hazards: No Pets and animals: Yes Pets & animals: dog(s) Pets & animal details: I have a dog but togeter 5 dogs and 3 cats Leisure activites: other Leisure activities details: lack of interest in anythi ng at this time Do you think of yourself as: Straight/Heterosexual Current gender identity: Male Bita/Baptism: None Special bita needs: No Agree to transfusion: No Data Anesthesia Cardiac Studies: No Data to Display
[2023-09-26 10:05] VITALS: BP 122/98; PULSE 91; RESP 16; TEMP 36.2; O2SAT 98
[2023-09-26 10:15] VITALS: BP 129/99; PULSE 85; RESP 16; O2SAT 96
--- NOTE | 2023-09-26 13:13 | ANE.PACU2 ---
Inpatient post-anesthesia follow up: Airway intact: Yes Vital signs: Temperature 97.2 F Pulse Rate 85 Respiratory Rate 16 Blood Pressure 129/99 Pulse Oximetry 96 Oxygen Delivery Me thod Room Air Oxygen Flow Rate Fraction of Inspir ed Oxygen Hydration adequate: Yes Nausea and vomiting: No Pain level: 1 Mental status: Baseline
== END 2023-09-26 10:35 | disposition home or self-care (01) ==
PROVIDERS: PCP Nurse Practitioner; Visit Provider Surgery
PROC: 0DJ08ZZ Inspection of Upper Intestinal Tract, Via Natural or Artificial Opening Endoscopic (ICD-10-PCS; CPT 43235; principal; 2023-09-26 09:15)
DX: R11.2 Nausea with vomiting, unspecified (principal); K21.9 Gastro-esophageal reflux disease without esophagitis; Z86.19 Personal history of other infectious and parasitic diseases; F17.208 Nicotine dependence, unspecified, with other nicotine-induced disorders
CPT/HCPCS: 43239; 76937; 88305; J2704; J7030

== ENCOUNTER → 2023-10-29 08:00 | Outpatient (BNVA) | payer MEDICARE, MEDICAID, SELFPAY ==
[2023-06-18 16:42] VITALS: BP 122/84; BMI 25.6
== END ==
PROVIDERS: PCP Nurse Practitioner; Visit Provider Surgery
DX: Z09 Encounter for follow-up examination after completed treatment for conditions other than malignant neoplasm (principal)
CPT/HCPCS: 99213

== ENCOUNTER → 2024-02-19 11:18 | Outpatient (BNVA) | payer OTHER, MEDICAID, SELFPAY ==
[2023-06-18 16:42] VITALS: BP 122/84; BMI 25.6
== END ==
PROVIDERS: PCP Nurse Practitioner; Visit Provider Specialist
DX: R42 Dizziness and giddiness (principal); R29.90 Unspecified symptoms and signs involving the nervous system; G40.319 Generalized idiopathic epilepsy and epileptic syndromes, intractable, without status epilepticus; G40.109 Localization-related (focal) (partial) symptomatic epilepsy and epileptic syndromes with simple partial seizures, not intractable, without status epilepticus; F43.12 Post-traumatic stress disorder, chronic; F15.21 Other stimulant dependence, in remission
CPT/HCPCS: 99213

== ENCOUNTER → 2024-04-23 13:23 | Outpatient (BNVA) | payer MEDICARE, OTHER, SELFPAY ==
[2023-06-18 16:42] VITALS: BP 122/84; BMI 25.6
== END ==
PROVIDERS: PCP Nurse Practitioner; Visit Provider Nurse Practitioner
DX: Z79.899 Other long term (current) drug therapy (principal)
CPT/HCPCS: 80061; 83036

== ENCOUNTER 2024-06-24 06:00 | Outpatient (CLI) | payer OTHER, SELFPAY ==
[2024-05-08 11:23] VITALS: BP 108/74; BMI 27.9
== END 2024-06-24 06:01 | disposition home or self-care (01) ==
LOC: SLEEP 07-17 13:37
PROVIDERS: PCP Nurse Practitioner Family; Visit Provider Nurse Practitioner Family
DX: Z13.6 Encounter for screening for cardiovascular disorders (principal); F51.01 Primary insomnia; E55.9 Vitamin D deficiency, unspecified; K21.9 Gastro-esophageal reflux disease without esophagitis; Z79.899 Other long term (current) drug therapy
CPT/HCPCS: 80053; 80061; 81003; 82306; 83036; 84443; 85025

== ENCOUNTER 2024-07-19 09:53 | Inpatient (IN) | payer MEDICARE, MEDICAID, SELFPAY ==
[2024-05-08 11:23] VITALS: BP 108/74; BMI 27.9
[2024-07-19 09:55] VITALS: BP 156/86; PULSE 83; RESP 18; O2SAT 96; BMI 27.8
--- NOTE | 2024-07-19 09:56 | XRR_ITS ---
PROCEDURE INFORMATION: Exam: XR Right Hand Exam date and time: 07/19/2024 10:18 AM Age: 48 years old Clinical indication: Trauma. He reports punching a truck with is right hand. Right hand is swollen, somewhat limited range of motion due to swelling and discomfort. Blunt trauma (contusions or hematomas). Traumatic hand pain TECHNIQUE: Imaging protocol: Radiologic exam of the right hand. Views: 3 or more views. COMPARISON: No relevant prior studies available. FINDINGS: Bones/joints: There is a nondisplaced fracture involving the distal metaphysis of the 5th metacarpal with apex posterior angulation. Dorsal/ulnar soft tissue swelling. Soft tissues: Foreign body or calcification (3 mm) in the radial aspect of the 3rd finger at the level of the proximal interphalangeal joint. XR/XR hand RT min 3V* [id number] IMPRESSION: 1. Nondisplaced fracture involving the distal metaphysis of the 5th metacarpal with apex posterior angulation. 2. Dorsal/ulnar soft tissue swelling. 3. Foreign body or calcification (3 mm) in the radial aspect of the 3rd finger at the level of the proximal interphalangeal joint.
--- NOTE | 2024-07-19 10:12 | ED.C_ITS ---
HPI - Psych 2 General: Chief Complaint: Psychiatric Symptoms Stated Complaint: mhe Time Seen by Provider: 07/19/24 09:53 History of Present Illness: 48-year-old man with a history of depres precious PTSD, cannabis dependence,, anxiety, nicotine dependence and hypertension who presents the emergency room with suicidal thoughts. He says this been going on for a long time but what is worse now. He has multiple superficial lacerations to his left palmar wrist and forearm. No chest pain. No shortness of breath. No abdominal pain. No nausea or vomiting. No focal motor deficits. Related Data Previous Rx's Medication Instructions Recorded divalproex 500 mg tablet,delayed 500 mg PO BID 30 days #60 tabs 02/19/24 release (Depakote) desvenlafaxine succinate 25 mg 25 mg PO DAILY #30 tabs 04/23/24 tablet,extended release 24 hr (Pristiq) desvenlafaxine succinate 50 mg 50 mg PO DAILY #30 tabs 04/23/24 tablet,extended release 24 hr (Pristiq) mirtazapine 30 mg tablet (Remeron) 30 mg PO DAILY #30 tabs 04/23/24 paliperidone 6 mg tablet,extended 12 mg (2 x 6 mg) PO QAM #60 tabs 04/23/24 release 24 hr (Invega) prazosin 2 mg capsule 2 mg PO .HS #90 caps 04/23/24 prazosin 5 mg capsule 5 mg PO BEDTIME #90 caps 04/23/24 levetiracetam 750 mg tablet See Rx Instructions .Route 05/11/24 .COMPLEX #120 tabs hydroxyzine HCl 25 mg tablet 25 mg PO BID PRN anxiety #60 tabs 05/12/24 ibuprofen 600 mg tablet (IBU) See Rx Instructions .Route 06/16/24 .COMPLEX #60 tabs albuterol sulfate 90 mcg/actuation 2 puff inhalation Q6H PRN 06/24/24 aerosol inhaler (Ventolin HFA) shortness of breath or wheezing #8.5 grams dexlansoprazole 30 mg 30 mg PO DAILY 90 days #90 caps 06/24/24 capsule,biphase delayed release (Dexilant) pimecrolimus 1 % topical cream 1 applic topical BID 30 days #60 06/24/24 (Elidel) grams cholecalciferol (vitamin D3) 1,250 50,000 unit PO .weekly #12 caps 07/02/24 mcg (50,000 unit) capsule Allergies Allergy/AdvReac Type Severity Reaction Status Date / Time aspirin [From Anel Aspirin] Allergy ulcer Verified 07/02/24 07:38 Review of Systems 2 Narrative: Constitutional symptoms: Negative except as documented in HPI. Skin symptoms: Negative except as documented in HPI. Eye symptoms: Negative except as documented in HPI. ENMT symptoms: Negative except as documented in HPI. Respiratory symptoms: Negative except as documented in HPI. Cardiovascular symptoms: Negative except as documented in HPI. Gastrointestinal symptoms: Negative except as documented in HPI. Genitourinary symptoms: Negative except as documented in HPI. Musculoskeletal symptoms: Negative except as documented in HPI. Neurologic symptoms: Negative except as documented in HPI. Psychiatric symptoms: Negative except as documented in HPI. Endocrine symptoms: Negative except as documented in HPI. PFSH ED 2 PFSH: Medical History History of trigger finger Encounter for laboratory test Eczema Encounter for screening for cardiovascular disorders On combination antipsychotic drug therapy Cough Major depressive disorder, recurrent severe without psychotic features Otitis media of both ears Vitamin B12 deficiency (dietary) anemia Medication management Anemia Black tarry stools Post-traumatic stress disorder, chronic Cannabis dependence, uncomplicated Other stimulant dependence, uncomplicated Nicotine dependence, cigarettes, with other nicotine-induced disorders Psychiatric care Insomnia Nightmare Carpal tunnel syndrome of left wrist Anxiety and depression Wound abscess Vitamin D deficiency Nausea Hypertension screen Vitamin D deficiency Abdominal pain Back pain Pruritic rash Hepatitis C without hepatic coma Chronic nausea Blood in stool Methamphetamine abuse, episodic History of intravenous drug use in remission GERD (gastroesophageal reflux disease) Epilepsy Depression Back pain Surgical History History of carpal tunnel release History of esophagogastroduodenoscopy (EGD) 09/26 dr. osborn Status post knee surgery Family History Other CAD (coronary artery disease) Cancer Hypertension Social History (Updated 07/02/24 @ 14:42 by Mitzi Barber RN) Smoking and tobacco/nicotine status: heavy tobacco/nicotine user (1/2 pack to 1 1/2 ppd) cigarettes Packs smoked per day: 1 Years cigarettes smoked: 43 Quit status (tobacco/nicotine): has tried quititng Number of times tried to quit tobacco: 2 Second hand smoke exposure: Yes Alcohol intake: current Alcohol intake frequency: holidays/special occasions only Alcohol type: hard liquor Substance/Drug Use: current Substance/Drug use frequency: daily Other substance/drug use details: as much as I can , dabbles in meth Adopted: No Caregiver/support person: No Lives independently: No Household members: significant other and other Details: friend, friends son, and another room mate Housing: House Marital status: Single Number of children: 0 Highest education level completed: 11th Grade Education level details: working on high school diploma service: No Current occupational status: disabled Current occupational exposures/hazards: No Pets and animals: Yes Pets & animals: dog(s) Pets & animal details: I have a dog but togeter 3 dogs and 1 cats Leisure activites: art, music, reading and other Leisure activities details: model's, jeannette art Sexually active: Yes Do you think of yourself as: Straight/Heterosexual Current gender identity: Male Bita/Sikh: Other Special bita needs: No Agree to transfusion: Yes Physical Exam 2 Narrative: EXAM NARRATIVE: General: Alert. no acute distress Skin: Warm, dry, multiple superficial lacerations to the left palmar forearm. Head: Normocephalic, atraumatic. Neck: Supple, trachea midline. Eye: Extraocular movements are intact. Ears, nose, mouth and throat: Oral mucosa moist. Cardiovascular: Regular rate and rhythm, Normal peripheral perfusion. Respiratory: Lungs are clear to auscultation, respirations are non-labored, breath sounds are equal, Symmetrical chest wall expansion. Gastrointestinal: Soft, Nontender, Non distended, Normal bowel sounds. Musculoskeletal: Swelling and pain to palpation of the right hand on the ulnar side. Neurological: Alert and oriented to person, place, time, and situation, No focal neurological deficit observed. Psychiatric: Cooperative, depressed, expresses suicidal ideation. Course 2 Vital Signs: Vital signs: Vital Signs Pulse Rate 83 07/19/24 09:55 Respiratory Rate 18 07/19/24 09:55 Blood Pressure 156/86 07/19/24 09:55 Pulse Oximetry 96 07/19/24 09:55 Oxygen Delivery Me thod Room Air 07/19/24 09:55 MDM - Psych Medical Decision Making Differential diagnosis: Patient with reported depression and suicidal ideation. concerns for infection, alcohol intoxication, cardiac issues or other medical problems prior to psychiatric admission. Workup: labwork, ekg ordered to evaluate the pathologies and to clear the patient medically prior to psychiatric admission EKG: Time 1033. Rate 72. Normal sinus rhythm, No ST-T changes, no ectopy, normal CT & QRS intervals, This was reviewed and interpreted by myself the ER physician at 10:35 AM Chest x-ray: No acute process. No infiltrate. No pneumothorax. This was reviewed and interpreted by myself the ER physician. X-ray of the right hand nondisplaced fracture of the distal metaphysis of the fifth metacarpal. There is some angulation. There are some soft tissue swelling. This was reviewed and interpreted by myself the emergency room physician. I also reviewed the radiology report. Lab Review: Laboratory results were reviewed and interpreted by myself the emergency room physician. Lab review: - Medically cleared. - EKG shows no ischemic changes. - Blood alcohol level is negative, -Tylenol and salicylate levels are negative. - Drug screen is amphetamines and marijuana - No signs of infection, urinalysis clear and white count is not elevated - No anemia. - BUN and creatinine are within normal limits. Assessment and plan: Suicidal ideation Depression Distal fifth metacarpal fracture Superficial wrist lacerations Self-mutilation Methamphetamine use/abuse Marijuana use/abuse Tobacco dependence -Splint placed by nursing to the left hand. I examined personally. Neurovascularly intact. ? Transfer to neuropsychiatric unit for continued evaluation and treatment. Unit here is full. - All lab work was reviewed and interpreted personally by myself, the ER physician - Evaluation and treatment of this problem were appropriate in the emergency setting Lab Data 07/19/24 10:18 07/19/24 10:18 Radiology Impressions Hand X-Ray 07/19/24 09:56 IMPRESSION: 1. Nondisplaced fracture involving the distal metaphysis of the 5th metacarpal with apex posterior angulation. 2. Dorsal/ulnar soft tissue swelling. 3. Foreign body or calcification (3 mm) in the radial aspect of the 3rd finger at the level of the proximal interphalangeal joint. Chest X-Ray 07/19/24 10:15 IMPRESSION: Possible nodule at the left lateral base measuring 1 cm. This may be artifactual. Recommend CT chest to further assess. Laboratory Results WBC 7.08 10^3/uL (3.29-11.43) 07/19/24 10:18 RBC 3.98 10^6/uL (3.85-5.65) 07/19/24 10:18 Hgb 13.00 g/dL (11.27-16.99) 07/19/24 10:18 Hct 38.6 % (37-53) 07/19/24 10:18 MCV 97.0 fl (82-101) 07/19/24 10:18 MCH 32.7 pg (27-33) 07/19/24 10:18 MCHC 33.7 g/dL (30-55) 07/19/24 10:18 RDW 12.4 % (12.1-15.1) 07/19/24 10:18 Plt Count 225 10^3/cmm (157-399) 07/19/24 10:18 MPV 10.7 fL (7.4-10.4) H 07/19/24 10:18 Neut % (Auto) 60.5 % 07/19/24 10:18 Lymph % (Auto) 29.5 % 07/19/24 10:18 [place] % (Auto) 7.6 % 07/19/24 10:18 Eos % (Auto) 1.6 % 07/19/24 10:18 Baso % (Auto) 0.7 % 07/19/24 10:18 Neut # (Auto) 4.28 10^3/uL (1.8-7.7) 07/19/24 10:18 Lymph # (Auto) 2.1 10^3/uL (0.8-4.8) 07/19/24 10:18 [place] # (Auto) 0.5 10^3/uL (0.2-0.9) 07/19/24 10:18 Eos # (Auto) 0.1 10^3/uL (0.0-0.8) 07/19/24 10:18 Baso # (Auto) 0.1 10^3/uL (0.0-0.1) 07/19/24 10:18 Nucleated RBC % (auto) 0 % 07/19/24 10:18 Nucleated RBCs # 0.0 /100WBC 07/19/24 10:18 Sodium 140 mmol/L (136-145) 07/19/24 10:18 Potassium 4.3 mmol/L (3.5-5.1) 07/19/24 10:18 Chloride 105 mmol/L (98-107) 07/19/24 10:18 Carbon Dioxide 27 mmol/L (22-29) 07/19/24 10:18 Anion Gap 12.3 (5-19) 07/19/24 10:18 BUN 12 mg/dL (6-20) 07/19/24 10:18 Creatinine 0.9 mg/dL (0.7-1.2) 07/19/24 10:18 GFR Calculation 89.7 mL/min (90-130) L 07/19/24 10:18 Glucose 98 mg/dL (65-115) 07/19/24 10:18 Calculated Osmolality 290 mOsm/kg (285-295) 07/19/24 10:18 Calcium 8.9 mg/dL (8.5-10.5) 07/19/24 10:18 Total Bilirubin 0.3 mg/dL (0.15-1.2) 07/19/24 10:18 AST 14 U/L (0-40) 07/19/24 10:18 ALT 8 U/L (0-41) 07/19/24 10:18 Alkaline Phosphatase 57 U/L (40-130) 07/19/24 10:18 Total Protein 6.9 g/dL (6.6-8.7) 07/19/24 10:18 Albumin 4.3 g/dL (3.5-5.2) 07/19/24 10:18 Globulin 2.6 g/dL (1.3-4.6) 07/19/24 10:18 TSH 1.28 uIU/mL (0.27-4.20) 07/19/24 10:18 Urine Color Yellow (Yellow) 07/19/24 12:48 Urine Appearance Cloudy (CLEAR) A 07/19/24 12:48 Urine pH 8.0 (5-7) A 07/19/24 12:48 Ur Specific [place] 1.014 (1.005-1.030) 07/19/24 12:48 Urine Protein Negative (Negative) 07/19/24 12:48 Urine Glucose (UA) Negative (Normal) 07/19/24 12:48 Urine Ketones Negative (Negative) 07/19/24 12:48 Urine Blood Negative (Negative) 07/19/24 12:48 Urine Nitrate Negative (Negative) 07/19/24 12:48 Urine Bilirubin Negative (Negative) 07/19/24 12:48 Urine Urobilinogen 1.0 mg/dL (Negative) 07/19/24 12:48 Ur Leukocyte Esterase Negative (Negative) 07/19/24 12:48 Urine RBC 3-5 /hpf (0-2) 07/19/24 12:48 Urine WBC 0-5 /hpf (0-5) 07/19/24 12:48 Ur Squamous Epith Cells 0-5 /hpf (0-5) 07/19/24 12:48 Amorphous Sediment Not Reportable 07/19/24 12:48 Urine Bacteria None seen /hpf (NONE) 07/19/24 12:48 Hyaline Casts 2.05 /lpf 07/19/24 12:48 Salicylates < 0.3 mg/dL (3-10) L 07/19/24 10:18 Urine Opiates Screen Negative ng/mL (Negative) 07/19/24 12:48 Acetaminophen < 5.0 ug/mL (10-30) L 07/19/24 10:18 Ur Barbiturates Screen Negative ng/mL (Negative) 07/19/24 12:48 Ur Phencyclidine Scrn Negative ng/mL (Negative) 07/19/24 12:48 Ur Amphetamines Screen Positive ng/mL (Negative) H 07/19/24 12:48 U Benzodiazepines Scrn Negative ng/mL (Negative) 07/19/24 12:48 Urine Cocaine Screen Negative ng/mL (Negative) 07/19/24 12:48 U Marijuana (THC) Screen Positive ng/mL (Negative) H 07/19/24 12:48 Ethyl Alcohol < 10 mg/dL (0-10) 07/19/24 10:18 SARS-CoV-2 Ag (Rapid) negative (Negative) 07/19/24 10:41 All radiology interpretation(s) finalized by discharge Discharge Plan Discharge Clinical Impression: Depression with suicidal ideation, Fracture of fifth metacarpal bone of right hand, Self mutilating behavior, Superficial laceration of wrist, Pulmonary nodule, Closed fracture of metacarpal of right hand Condition: Stable Prescriptions: No Action desvenlafaxine succinate [Pristiq] 25 mg tablet extended release 24 hr 25 mg PO DAILY Qty: 30 2RF Rx Instructions: take with Pristiq 50mg daily. desvenlafaxine succinate [Pristiq] 50 mg tablet extended release 24 hr 50 mg PO DAILY Qty: 30 2RF prazosin 5 mg capsule 5 mg PO BEDTIME Qty: 90 0RF Rx Instructions: Take one capsule at bedtime prazosin 2 mg capsule 2 mg PO .HS Qty: 90 0RF paliperidone [Invega] 6 mg tablet extended release 24 hr 12 mg PO QAM Qty: 60 2RF mirtazapine [Remeron] 30 mg tablet 30 mg PO DAILY Qty: 30 2RF divalproex [Depakote] 500 mg tablet,delayed release (DR/EC) 500 mg PO BID 30 Days Qty: 60 11RF pimecrolimus [Elidel] 1 % cream 1 applic topical BID 30 Days Qty: 60 0RF albuterol sulfate [Ventolin HFA] 90 mcg/actuation HFA aerosol inhaler 2 puff inhalation Q6H PRN (Reason: shortness of breath or wheezing) Qty: 8.5 5RF dexlansoprazole [Dexilant] 30 mg capsule,biphase delayed releas 30 mg PO DAILY 90 Days Qty: 90 2RF levetiracetam 750 mg tablet See Rx Instructions .ROUTE .COMPLEX Qty: 120 11RF Dose Instruction: TAKE 2 TABLETS BY MOUTH TWICE DAILY Rx Instructions: TAKE 2 TABLETS BY MOUTH TWICE DAILY hydroxyzine HCl 25 mg tablet 25 mg PO BID PRN (Reason: anxiety) Qty: 60 1RF ibuprofen [IBU] 600 mg tablet See Rx Instructions .ROUTE .COMPLEX Qty: 60 1RF Dose Instruction: TAKE 1 TABLET BY MOUTH TWICE DAILY NEEDED FOR PAIN Rx Instructions: TAKE 1 TABLET BY MOUTH TWICE DAILY NEEDED FOR PAIN cholecalciferol (vitamin D3) 1,250 mcg (50,000 unit) capsule 50,000 unit PO .weekly Qty: 12 3RF Referrals: SHON Piper, PRICING MANAGER [Primary Care Provider] - Activity Restrictions/Additional Instructions: A pulmonary nodule was seen on imaging. This will need follow up imaging with your primary provider. Please schedule an appointment concerning this. Thank you for choosing [facility] for your healthcare needs today. Please realize this is an emergency room and that we are providing you with a medical screening exam and this may not be complete and all inclusive of all the testing and or work up that you may need to determine your ailment or severity of your illness. You have been screened and evaluated and felt safe for discharge. Health conditions do change or evolve sometimes and as such it is important that you follow up with your Primary Doctor to be re checked, 3-5 days is a general good time frame for follow up. You are always welcome to return to the ED for re assessment if your symptoms are worsening or you have new concerns Coding Level of Care Code ED Facilities And Grounds Director for Tyree Hernandez
--- NOTE | 2024-07-19 10:15 | XRR_ITS ---
PROCEDURE INFORMATION: Exam: XR Chest Exam date and time: 07/19/2024 10:20 AM Age: 48 years old Clinical indication: Psychiatric workup TECHNIQUE: Imaging protocol: Radiologic exam of the chest. Views: 1 view. COMPARISON: CR XR chest 1V [id number] 05/13/2019 7:19 AM FINDINGS: Lungs: Possible nodule at the left lateral base measuring 1 cm. This may be artifactual. Pleural spaces: No pleural effusion. No pneumothorax. Heart/Mediastinum: The cardiac silhouette is unchanged. No gross evidence of pneumomediastinum. Bones/joints: No gross fracture. XR/XR chest 1V portable [id number] IMPRESSION: Possible nodule at the left lateral base measuring 1 cm. This may be artifactual. Recommend CT chest to further assess.
[2024-07-19 10:33] LABS: Basophils # 0.1 10^3/uL (0.0-0.1); Basophils % 0.7 %; Eosinophils # 0.1 10^3/uL (0.0-0.8); Eosinophils % 1.6 %; Hematocrit 38.6 % (37-53); Lymphocytes # 2.1 10^3/uL (0.8-4.8); Lymphocytes % 29.5 %; Mean Corpuscular HGB Conc 33.7 g/dL (30-55); Mean Corpuscular Hemoglobin 32.7 pg (27-33); Mean Platelet Volume 10.7 fL (7.4-10.4); Monocytes # 0.5 10^3/uL (0.2-0.9); Monocytes % 7.6 %; Neutrophils # 4.28 10^3/uL (1.8-7.7); Neutrophils % 60.5 %; Nucleated Red Blood Cells % 0 %; Platelet Count 225 10^3/cmm (157-399); Red Blood Count 3.98 10^6/uL (3.85-5.65); Red Cell Distribution Width 12.4 % (12.1-15.1); White Blood Count 7.08 10^3/uL (3.29-11.43)
--- NOTE | 2024-07-19 10:33 | ECG_ITS ---
[facility] Test Date: 2024-07-19 Pat Name: Baron Brooks Department: Room: Gender: Male [employer]: : 1975 Requested By: Hanane Pierson Order Number: [id number] Mao MD: Mike Sexton M.D. Measurements Intervals [place] Rate: 72 P: 61 MO: 170 QRS: 82 QRSD: 94 T: 70 QT: 371 QTc: 407 Interpretive Statements SINUS RHYTHM Compared to ECG 10/13/2017 14:03:06 No significant changes Electronically Signed On 07-19-2024 22:38:47 CDT by Mike Sexton M.D. [email or web address] memorial hospitalAustin Logistics Incorporatedsuburban community hospital & brentwood hospitalLifeVantage/store/OM/[id number]
[2024-07-19 10:58] LABS: Alanine Aminotransferase 8 U/L (0-41); Albumin Level 4.3 g/dL (3.5-5.2); Alkaline Phosphatase 57 U/L (40-130); Anion Gap 12.3 (5-19); Aspartate Amino Transferase 14 U/L (0-40); Blood Urea Nitrogen 12 mg/dL (6-20); Calcium 8.9 mg/dL (8.5-10.5); Carbon Dioxide 27 mmol/L (22-29); Chloride 105 mmol/L (98-107); Creatinine Clr Calc Pharmacy 114.4061; Globulin 2.6 g/dL (1.3-4.6); Glomerular Filtration Rate 89.7 mL/min (90-130); Glucose 98 mg/dL (65-115); Osmolality Calculated 290 mOsm/kg (285-295); Potassium 4.3 mmol/L (3.5-5.1); Sodium 140 mmol/L (136-145); Thyroid Stimulating Hormone 1.28 uIU/mL (0.27-4.20); Total Bilirubin 0.3 mg/dL (0.15-1.2); Total Protein 6.9 g/dL (6.6-8.7)
[2024-07-19 11:00] LABS: Acetaminophen < 5.0 ug/mL (10-30); Alcohol Level < 10 mg/dL (0-10); Salicylate < 0.3 mg/dL (3-10)
[2024-07-19 11:07] LABS: SARS Covid-2 Antigen negative (Negative)
[2024-07-19 12:56] LABS: Bilirubin Urine Negative (Negative); Blood Urine Negative (Negative); Glucose Urine UA Negative (Normal); Ketones Urine Negative (Negative); Leukocyte Esterase Urine Negative (Negative); Nitrate Urine Negative (Negative); Protein Urine Negative (Negative); Specific Gravity, Urine 1.014 (1.005-1.030); Urine Appearance Cloudy (CLEAR); Urine Color Yellow (Yellow)
[2024-07-19 13:01] LABS: Bacteria Urine None Seen /hpf; Hyaline Casts Urine 2.05 /lpf; Squamous Epithelial Cell Urine 0-5 /hpf (0-5); WBC Urine 0-5 /hpf (0-5)
[2024-07-19 13:03] LABS: Amphetamines Screen Urine Positive (Negative); Barbiturates Screen Urine Negative (Negative); Benzodiazepines Screen Urine Negative (Negative); Cocaine Screen Urine Negative (Negative); Opiate Screen Urine Negative (Negative); PCP Screen Urine Negative (Negative); THC Screen Urine Positive (Negative)
--- NOTE | 2024-07-19 18:50 | PC.NURSE ---
This nurse assumed care of this patient at shift change, from Theresa VÁZQUEZ.
[2024-07-19 20:00] VITALS: BP 136/80; PULSE 75; O2SAT 98
[2024-07-20] MEDS: ibuprofen 600 mg Tablet PO (02:38)
[2024-07-20] MEDS: acetaminophen 325 mg Tablet 650 MG PO (09:17)
[2024-07-20 09:19] VITALS: BP 115/72; PULSE 78; RESP 17; O2SAT 96
[2024-07-20] MEDS: HYDROcodone-acetaminophen 5-325 mg Tablet 1 TAB PO ×3 (12:32→23:09)
[2024-07-20] MEDS: nicotine 14 mg Patch 1 PATCH TRANSDERMA (12:33)
--- NOTE | 2024-07-20 12:41 | ED.C_ITS ---
HPI - Psych 2 General: Chief Complaint: Psychiatric Symptoms Stated Complaint: mhe Time Seen by Provider: 07/19/24 09:53 History of Present Illness: I saw patient again today. He is resting comfortably in his room. He still expresses suicidal ideation and has been asking the patient care person for a gun. Still having some pain in his hand. This morning it was decided that he could stay here rather than transferring as some beds will be clearing up here later. Related Data Home Medications Medication Instructions Recorded Confirmed ibuprofen 600 mg tablet (IBU) 600 mg PO BID PRN Pain 07/20/24 07/20/24 levetiracetam 750 mg tablet 1,500 mg PO BID 07/20/24 07/20/24 tacrolimus 0.1 % topical ointment 1 applic topical BID 07/20/24 07/20/24 Previous Rx's Medication Instructions Recorded divalproex 500 mg tablet,delayed 500 mg PO BID 30 days #60 tabs 02/19/24 release (Depakote) desvenlafaxine succinate 25 mg 25 mg PO DAILY #30 tabs 04/23/24 tablet,extended release 24 hr (Pristiq) desvenlafaxine succinate 50 mg 50 mg PO DAILY #30 tabs 04/23/24 tablet,extended release 24 hr (Pristiq) mirtazapine 30 mg tablet (Remeron) 30 mg PO DAILY #30 tabs 04/23/24 paliperidone 6 mg tablet,extended 12 mg (2 x 6 mg) PO QAM #60 tabs 04/23/24 release 24 hr (Invega) prazosin 2 mg capsule 2 mg PO .HS #90 caps 04/23/24 prazosin 5 mg capsule 5 mg PO BEDTIME #90 caps 04/23/24 hydroxyzine HCl 25 mg tablet 25 mg PO BID PRN anxiety #60 tabs 05/12/24 albuterol sulfate 90 mcg/actuation 2 puff inhalation Q6H PRN 06/24/24 aerosol inhaler (Ventolin HFA) shortness of breath or wheezing #8.5 grams dexlansoprazole 30 mg 30 mg PO DAILY 90 days #90 caps 06/24/24 capsule,biphase delayed release (Dexilant) pimecrolimus 1 % topical cream 1 applic topical BID 30 days #60 06/24/24 (Elidel) grams Allergies Allergy/AdvReac Type Severity Reaction Status Date / Time aspirin [From Anel Aspirin] Allergy ulcer Verified 07/02/24 07:38 Review of Systems 2 Narrative: Constitutional symptoms: Negative except as documented in HPI. Skin symptoms: Negative except as documented in HPI. Eye symptoms: Negative except as documented in HPI. ENMT symptoms: Negative except as documented in HPI. Respiratory symptoms: Negative except as documented in HPI. Cardiovascular symptoms: Negative except as documented in HPI. Gastrointestinal symptoms: Negative except as documented in HPI. Genitourinary symptoms: Negative except as documented in HPI. Musculoskeletal symptoms: Negative except as documented in HPI. Neurologic symptoms: Negative except as documented in HPI. Psychiatric symptoms: Negative except as documented in HPI. Endocrine symptoms: Negative except as documented in HPI. PFSH ED 2 PFSH: Medical History History of trigger finger Encounter for laboratory test Eczema Encounter for screening for cardiovascular disorders On combination antipsychotic drug therapy Cough Major depressive disorder, recurrent severe without psychotic features Otitis media of both ears Vitamin B12 deficiency (dietary) anemia Medication management Anemia Black tarry stools Post-traumatic stress disorder, chronic Cannabis dependence, uncomplicated Other stimulant dependence, uncomplicated Nicotine dependence, cigarettes, with other nicotine-induced disorders Psychiatric care Insomnia Nightmare Carpal tunnel syndrome of left wrist Anxiety and depression Wound abscess Vitamin D deficiency Nausea Hypertension screen Vitamin D deficiency Abdominal pain Back pain Pruritic rash Hepatitis C without hepatic coma Chronic nausea Blood in stool Methamphetamine abuse, episodic History of intravenous drug use in remission GERD (gastroesophageal reflux disease) Epilepsy Depression Back pain Surgical History History of carpal tunnel release History of esophagogastroduodenoscopy (EGD) 09/26 dr. osborn Status post knee surgery Family History Other CAD (coronary artery disease) Cancer Hypertension Social History (Updated 07/02/24 @ 14:42 by Mitzi Barber RN) Smoking and tobacco/nicotine status: heavy tobacco/nicotine user (1/2 pack to 1 1/2 ppd) cigarettes Packs smoked per day: 1 Years cigarettes smoked: 43 Quit status (tobacco/nicotine): has tried quititng Number of times tried to quit tobacco: 2 Second hand smoke exposure: Yes Alcohol intake: current Alcohol intake frequency: holidays/special occasions only Alcohol type: hard liquor Substance/Drug Use: current Substance/Drug use frequency: daily Other substance/drug use details: as much as I can , dabbles in meth Adopted: No Caregiver/support person: No Lives independently: No Household members: significant other and other Details: friend, friends son, and another room mate Housing: House Marital status: Single Number of children: 0 Highest education level completed: 11th Grade Education level details: working on high school diploma service: No Current occupational status: disabled Current occupational exposures/hazards: No Pets and animals: Yes Pets & animals: dog(s) Pets & animal details: I have a dog but togeter 3 dogs and 1 cats Leisure activites: art, music, reading and other Leisure activities details: Vyykn's, jeannette art Sexually active: Yes Do you think of yourself as: Straight/Heterosexual Current gender identity: Male Bita/Restoration: Other Special bita needs: No Agree to transfusion: Yes Physical Exam 2 Narrative: EXAM NARRATIVE: General: Alert, no acute distress. Skin: Warm, dry. Head: Normocephalic, atraumatic. Neck: Supple, trachea midline. Eye: Extraocular movements are intact. Ears, nose, mouth and throat: mucosa moist. Cardiovascular: Regular, Normal peripheral perfusion. Respiratory: Lungs are clear to auscultation, respirations are non-labored, breath sounds are equal, Symmetrical chest wall expansion. Gastrointestinal: Soft, Nontender, Non distended Musculoskeletal: Splint is in place. Neurological: Alert and oriented, No focal neurological deficit observed. Psychiatric: Patient still expresses suicidal thoughts and ideations Course 2 Vital Signs: Vital signs: Vital Signs Pulse Rate 78 07/20/24 09:19 Respiratory Rate 17 07/20/24 09:19 Blood Pressure 115/72 07/20/24 09:19 Pulse Oximetry 96 07/20/24 09:19 Oxygen Delivery Me thod Room Air 07/20/24 09:19 MDM - Psych Medical Decision Making Consultation: I spoke with Dr. Root who is on-call for orthopedics. She recommends a Velcro [id number] splint with the metal removed. Patient can follow-up and clinic after discharge. There is no need for an official consult while the patient is in the hospital. Consultation: I spoke with Dr. Corbett who is on-call for psychiatry and he accepts the patient to the Neuropsych Unit. Assessment and plan: Suicidal ideation Boxer's fracture Self-mutilation/superficial lacerations to left arm Tobacco dependence ?[place] for hand pain. ? Velcro splint being applied. -nicotine patch -I discussed the patient with the psychiatrist on-call who is admitting the patient. - Discussed findings and plan with patient. Answered any questions. Lab Data 07/19/24 10:18 07/19/24 10:18 Radiology Impressions Hand X-Ray 07/19/24 09:56 IMPRESSION: 1. Nondisplaced fracture involving the distal metaphysis of the 5th metacarpal with apex posterior angulation. 2. Dorsal/ulnar soft tissue swelling. 3. Foreign body or calcification (3 mm) in the radial aspect of the 3rd finger at the level of the proximal interphalangeal joint. Chest X-Ray 07/19/24 10:15 IMPRESSION: Possible nodule at the left lateral base measuring 1 cm. This may be artifactual. Recommend CT chest to further assess. Laboratory Results WBC 7.08 10^3/uL (3.29-11.43) 07/19/24 10:18 RBC 3.98 10^6/uL (3.85-5.65) 07/19/24 10:18 Hgb 13.00 g/dL (11.27-16.99) 07/19/24 10:18 Hct 38.6 % (37-53) 07/19/24 10:18 MCV 97.0 fl (82-101) 07/19/24 10:18 MCH 32.7 pg (27-33) 07/19/24 10:18 MCHC 33.7 g/dL (30-55) 07/19/24 10:18 RDW 12.4 % (12.1-15.1) 07/19/24 10:18 Plt Count 225 10^3/cmm (157-399) 07/19/24 10:18 MPV 10.7 fL (7.4-10.4) H 07/19/24 10:18 Neut % (Auto) 60.5 % 07/19/24 10:18 Lymph % (Auto) 29.5 % 07/19/24 10:18 Mercer % (Auto) 7.6 % 07/19/24 10:18 Eos % (Auto) 1.6 % 07/19/24 10:18 Baso % (Auto) 0.7 % 07/19/24 10:18 Neut # (Auto) 4.28 10^3/uL (1.8-7.7) 07/19/24 10:18 Lymph # (Auto) 2.1 10^3/uL (0.8-4.8) 07/19/24 10:18 Mercer # (Auto) 0.5 10^3/uL (0.2-0.9) 07/19/24 10:18 Eos # (Auto) 0.1 10^3/uL (0.0-0.8) 07/19/24 10:18 Baso # (Auto) 0.1 10^3/uL (0.0-0.1) 07/19/24 10:18 Nucleated RBC % (auto) 0 % 07/19/24 10:18 Nucleated RBCs # 0.0 /100WBC 07/19/24 10:18 Sodium 140 mmol/L (136-145) 07/19/24 10:18 Potassium 4.3 mmol/L (3.5-5.1) 07/19/24 10:18 Chloride 105 mmol/L (98-107) 07/19/24 10:18 Carbon Dioxide 27 mmol/L (22-29) 07/19/24 10:18 Anion Gap 12.3 (5-19) 07/19/24 10:18 BUN 12 mg/dL (6-20) 07/19/24 10:18 Creatinine 0.9 mg/dL (0.7-1.2) 07/19/24 10:18 GFR Calculation 89.7 mL/min (90-130) L 07/19/24 10:18 Glucose 98 mg/dL (65-115) 07/19/24 10:18 Calculated Osmolality 290 mOsm/kg (285-295) 07/19/24 10:18 Calcium 8.9 mg/dL (8.5-10.5) 07/19/24 10:18 Total Bilirubin 0.3 mg/dL (0.15-1.2) 07/19/24 10:18 AST 14 U/L (0-40) 07/19/24 10:18 ALT 8 U/L (0-41) 07/19/24 10:18 Alkaline Phosphatase 57 U/L (40-130) 07/19/24 10:18 Total Protein 6.9 g/dL (6.6-8.7) 07/19/24 10:18 Albumin 4.3 g/dL (3.5-5.2) 07/19/24 10:18 Globulin 2.6 g/dL (1.3-4.6) 07/19/24 10:18 TSH 1.28 uIU/mL (0.27-4.20) 07/19/24 10:18 Urine Color Yellow (Yellow) 07/19/24 12:48 Urine Appearance Cloudy (CLEAR) A 07/19/24 12:48 Urine pH 8.0 (5-7) A 07/19/24 12:48 Ur Specific [place] 1.014 (1.005-1.030) 07/19/24 12:48 Urine Protein Negative (Negative) 07/19/24 12:48 Urine Glucose (UA) Negative (Normal) 07/19/24 12:48 Urine Ketones Negative (Negative) 07/19/24 12:48 Urine Blood Negative (Negative) 07/19/24 12:48 Urine Nitrate Negative (Negative) 07/19/24 12:48 Urine Bilirubin Negative (Negative) 07/19/24 12:48 Urine Urobilinogen 1.0 mg/dL (Negative) 07/19/24 12:48 Ur Leukocyte Esterase Negative (Negative) 07/19/24 12:48 Urine RBC 3-5 /hpf (0-2) 07/19/24 12:48 Urine WBC 0-5 /hpf (0-5) 07/19/24 12:48 Ur Squamous Epith Cells 0-5 /hpf (0-5) 07/19/24 12:48 Amorphous Sediment Not Reportable 07/19/24 12:48 Urine Bacteria None seen /hpf (NONE) 07/19/24 12:48 Hyaline Casts 2.05 /lpf 07/19/24 12:48 Salicylates < 0.3 mg/dL (3-10) L 07/19/24 10:18 Urine Opiates Screen Negative ng/mL (Negative) 07/19/24 12:48 Acetaminophen < 5.0 ug/mL (10-30) L 07/19/24 10:18 Ur Barbiturates Screen Negative ng/mL (Negative) 07/19/24 12:48 Ur Phencyclidine Scrn Negative ng/mL (Negative) 07/19/24 12:48 Ur Amphetamines Screen Positive ng/mL (Negative) H 07/19/24 12:48 U Benzodiazepines Scrn Negative ng/mL (Negative) 07/19/24 12:48 Urine Cocaine Screen Negative ng/mL (Negative) 07/19/24 12:48 U Marijuana (THC) Screen Positive ng/mL (Negative) H 07/19/24 12:48 Ethyl Alcohol < 10 mg/dL (0-10) 07/19/24 10:18 SARS-CoV-2 Ag (Rapid) negative (Negative) 07/19/24 10:41 No radiology studies performed this visit Discharge Plan Discharge Clinical Impression: Depression with suicidal ideation, Fracture of fifth metacarpal bone of right hand, Self mutilating behavior, Superficial laceration of wrist, Pulmonary nodule, Closed fracture of metacarpal of right hand Condition: Stable Prescriptions: No Action desvenlafaxine succinate [Pristiq] 25 mg tablet extended release 24 hr 25 mg PO DAILY Qty: 30 2RF Rx Instructions: take with Pristiq 50mg daily. desvenlafaxine succinate [Pristiq] 50 mg tablet extended release 24 hr 50 mg PO DAILY Qty: 30 2RF prazosin 5 mg capsule 5 mg PO BEDTIME Qty: 90 0RF prazosin 2 mg capsule 2 mg PO .HS Qty: 90 0RF paliperidone [Invega] 6 mg tablet extended release 24 hr 12 mg PO QAM Qty: 60 2RF mirtazapine [Remeron] 30 mg tablet 30 mg PO DAILY Qty: 30 2RF divalproex [Depakote] 500 mg tablet,delayed release (DR/EC) 500 mg PO BID 30 Days Qty: 60 11RF pimecrolimus [Elidel] 1 % cream 1 applic topical BID 30 Days Qty: 60 0RF albuterol sulfate [Ventolin HFA] 90 mcg/actuation HFA aerosol inhaler 2 puff inhalation Q6H PRN (Reason: shortness of breath or wheezing) Qty: 8.5 5RF dexlansoprazole [Dexilant] 30 mg capsule,biphase delayed releas 30 mg PO DAILY 90 Days Qty: 90 2RF hydroxyzine HCl 25 mg tablet 25 mg PO BID PRN (Reason: anxiety) Qty: 60 1RF tacrolimus 0.1 % ointment 1 applic TOPICAL BID levetiracetam 750 mg tablet 1,500 mg PO BID ibuprofen [IBU] 600 mg tablet 600 mg PO BID PRN (Reason: Pain) Referrals: SHON Piper, [employer] [Primary Care Provider] - Activity Restrictions/Additional Instructions: A pulmonary nodule was seen on imaging. This will need follow up imaging with your primary provider. Please schedule an appointment concerning this. Thank you for choosing [facility] for your healthcare needs today. Please realize this is an emergency room and that we are providing you with a medical screening exam and this may not be complete and all inclusive of all the testing and or work up that you may need to determine your ailment or severity of your illness. You have been screened and evaluated and felt safe for discharge. Health conditions do change or evolve sometimes and as such it is important that you follow up with your Primary Doctor to be re checked, 3-5 days is a general good time frame for follow up. You are always welcome to return to the ED for re assessment if your symptoms are worsening or you have new concerns Coding Level of Care Code ED Systems Eng for Tyree Hernandez
[2024-07-20 17:32] VITALS: BP 132/83; PULSE 90; O2SAT 95
[2024-07-20 17:50] VITALS: BP 110/80; PULSE 89; RESP 17; TEMP 36.7; O2SAT 97
[2024-07-20 17:51] VITALS: BP 132/83; PULSE 90; O2SAT 95
[2024-07-20] MEDS: hyDROXYzine 25 mg Capsule 50 MG PO (18:39)
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
[2024-07-20 20:04] VITALS: BP 101/71; PULSE 86; RESP 18; TEMP 36.8; O2SAT 98
[2024-07-21 06:00] VITALS: BP 122/70; PULSE 95; RESP 18; TEMP 36.7; O2SAT 97
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
[2024-07-21] MEDS: HYDROcodone-acetaminophen 5-325 mg Tablet 1 TAB PO ×5 (06:12→22:33)
[2024-07-21] MEDS: desvenlafaxine 50 mg Tablet PO (08:57)
[2024-07-21] MEDS: paliperidone ER 6 mg Tablet 12 MG PO (08:57)
[2024-07-21] MEDS: levETIRAcetam 500 mg Tablet 1500 MG PO ×2 (08:57→17:11)
[2024-07-21] MEDS: divalproex DR 500 mg Tablet PO ×2 (08:58→17:11)
[2024-07-21] MEDS: pantoprazole DR 40 mg Tablet PO (08:58)
[2024-07-21 14:00] VITALS: BP 101/66; PULSE 71; RESP 17; TEMP 36.9; O2SAT 96
[2024-07-21 19:43] VITALS: BP 106/66; PULSE 74; RESP 16; TEMP 36.6; O2SAT 96
[2024-07-21] MEDS: prazosin 5 mg Capsule PO (21:26)
[2024-07-21] MEDS: mirtazapine 30 mg Tablet PO (21:27)
[2024-07-21] MEDS: hyDROXYzine 25 mg Capsule 50 MG PO (21:27)
[2024-07-22] MEDS: HYDROcodone-acetaminophen 5-325 mg Tablet 1 TAB PO ×3 (02:54→14:14)
[2024-07-22 06:00] VITALS: BP 94/59; PULSE 80; RESP 16; TEMP 36.7; O2SAT 93
[2024-07-22] MEDS: divalproex DR 500 mg Tablet PO ×2 (09:13→17:38)
[2024-07-22] MEDS: desvenlafaxine 50 mg Tablet PO (09:13)
[2024-07-22] MEDS: paliperidone ER 6 mg Tablet 12 MG PO (09:13)
[2024-07-22] MEDS: levETIRAcetam 500 mg Tablet 1500 MG PO ×2 (09:13→17:38)
[2024-07-22] MEDS: pantoprazole DR 40 mg Tablet PO (09:13)
--- NOTE | 2024-07-22 09:20 | PC.NURSE ---
IN BED RESTING WITH SITTER AT BEDSIDE. RATES ANXIETY 05/23 AND DEPRESSION 07/23. PT WITH ONE TO ONE OBSERVATION DUE TO SPLINT AND BELLE WRAP TO RIGHT HAND. SUPERFICAL SELF INFLICTED LACERATIONS OPEN TO AIR NOTED TO RIGHT FOREARM. DENIES SI/HI AND AVH AT THIS TIME. PT IN BED RESTING MAJORITY OF THE DAY AND IS NOTED TO BE WITHDRAWN AND ISOLATING TO ROOM. REPORTS HE SLEPT GOOD. GOAL FOR THE DAY IS NOTHING I GUESS. ALL QUESTIONS ANSWERED AND SUPPORT WAS VOICED.
--- NOTE | 2024-07-22 11:56 | PC.NURSE ---
NEW ORDERS RECEIVED TO START LEXAPRO [address] MURRIETA. ORDERS PLACED. EDUCATION PROVIDED, SUPPORT VOICED.
[2024-07-22] MEDS: escitalopram 10 mg Tablet PO (12:43)
[2024-07-22 14:00] VITALS: BP 106/74; PULSE 70; RESP 12; TEMP 36.8; O2SAT 97
--- NOTE | 2024-07-22 16:03 | P.NPUPN_ITS ---
Subjective NPU 2 Subjective: Patient presented today reporting that he is feeling all right. He reports that he is tired but does not feel any problems with the Lexapro. He endorsed that his Pristiq never seemed effective even at 75 mg. We discussed the risks, benefits and alternatives of discontinuing that medication. Otherwise he reports that his hand is still painful and he is hoping to make better decisions in the future. Mental Status Exam 2 MSE Comments: This is an overweight versus obese white male in hospital scrubs with limited grooming and eye contact. No abnormal movements except for psychomotor retardation. Cooperative with exam in mild to moderate distress. Speech was decreased rate and volume. Mood described as depressed, affect mostly congruent and subdued. Thought process appeared linear and mostly organized. Thought content: Patient denies homicidal but endorses suicidal ideation, there were no delusions reported but patient does endorse feeling like people are out to get him, he denied visual but did endorse auditory hallucinations. The patient presents with suicidal ideation, auditory hallucinations, anxiety, and depression. They report feeling like they have a ton of weight on their shoulders, difficulty breathing at times, and feelings of panic, nervousness, and shaking. They also express feelings of paranoia, believing that people think negatively of them. The patient reports hearing voices that tell them to harm themselves or others and that they are worthless. They also experience nightmares and flashbacks related to their PTSD. Attention and concentration were intact and memory was mostly reliable but none were formally tested. He is alert and oriented x 3. Insight, judgment and impulse control are all limited versus impaired. Vitals/I&O/Wt Last Vital Signs Temp 98.2 F 07/22/24 14:00 Pulse 70 07/22/24 14:00 Resp 12 07/22/24 14:00 BP 106/74 07/22/24 14:00 Pulse Ox 97 07/22/24 14:00 O2 Del Method Room Air 07/22/24 14:00 Data NPU 07/19/24 10:18 07/19/24 10:18 A&P Assessment and plan (1) Depression: Qualifiers: Depression Type: unspecified Qualified Code(s): F32.9 - Major depressive disorder, single episode, unspecified (2) History of intravenous drug use in remission: (3) Methamphetamine abuse, episodic: (4) Anxiety and depression: (5) Post-traumatic stress disorder, chronic: (6) Cannabis dependence, uncomplicated: (7) Major depressive disorder, recurrent severe without psychotic features: (8) Depression with suicidal ideation: (9) Self mutilating behavior: Plan This is a 48-year-old male with history of a past inpatient hospitalization and significant trauma in his life with recent feeling that his medications have not been working. The patient is experiencing significant psychiatric symptoms, particularly with managing their schizophrenia, major depressive disorder, generalized anxiety disorder, and post-traumatic stress disorder. Their current pharmacotherapy regimen appears to be suboptimal, and they have a history of medication non-compliance. They have a history of self-injurious behavior and suicidal ideation, and they continue to experience suicidal ideation and auditory hallucinations. 1. Continue current medication. Started Lexapro 10 mg p.o. daily. Discontinue Pristiq. 2. Continue every 15 minute checks for safety. 3. Encourage individual group and milieu therapy. 4. Encourage sober living treatment after discharge at the highest level of care to which he is willing to commit. 5. Obtain collateral information. Involuntary Hold Information 2 96 Hour Hold: 96 Hour Involuntary Admission: No Attestations NPU 2 Medical Necessity Statement*: Inpatient hospitalization is medically necessary and the clinically appropriate intervention at this time. We will monitor medication to make changes as indicated. Patient will be in the hospital for over two midnights. His likely length of stay 4-6 days. Coding Level of Care Code Acute Code for [facility] Diagnoses Depression, unspecified depression type F32.9 Depression Type: unspecified History of intravenous drug use in remission Z87.898 Methamphetamine abuse, episodic F15.10 Anxiety and depression F41.9; F32.9 Post-traumatic stress disorder, chronic F43.12 Cannabis dependence, uncomplicated F12.20 Major depressive disorder, recurrent severe without psychotic features F33.2 Depression with suicidal ideation F32.A; R45.851 Self mutilating behavior Z72.89
[2024-07-22 19:45] VITALS: BP 89/57; PULSE 70; RESP 16; O2SAT 93
[2024-07-22] MEDS: hyDROXYzine 25 mg Capsule 50 MG PO (20:54)
[2024-07-22] MEDS: prazosin 1 mg Capsule 2 MG PO (20:54)
[2024-07-22] MEDS: ibuprofen 600 mg Tablet PO (20:54)
[2024-07-22] MEDS: prazosin 5 mg Capsule PO (20:55)
[2024-07-22] MEDS: mirtazapine 30 mg Tablet PO (20:55)
[2024-07-23] MEDS: acetaminophen 325 mg Tablet 650 MG PO (04:00)
[2024-07-23 06:00] VITALS: BP 95/62; PULSE 81; RESP 16; TEMP 36.7; O2SAT 94
[2024-07-23] MEDS: pantoprazole DR 40 mg Tablet PO (08:02)
[2024-07-23] MEDS: paliperidone ER 6 mg Tablet 12 MG PO (08:02)
[2024-07-23] MEDS: levETIRAcetam 500 mg Tablet 1500 MG PO ×2 (08:02→18:14)
[2024-07-23] MEDS: HYDROcodone-acetaminophen 5-325 mg Tablet 1 TAB PO ×4 (08:02→21:23)
[2024-07-23] MEDS: divalproex DR 500 mg Tablet PO ×2 (08:02→18:14)
[2024-07-23] MEDS: escitalopram 10 mg Tablet PO (08:03)
[2024-07-23 14:00] VITALS: BP 109/84; PULSE 118; RESP 17; TEMP 36.4; O2SAT 95
[2024-07-23] MEDS: nicotine 4 mg lozenge MUCOUS MEM (14:41)
--- NOTE | 2024-07-23 15:00 | P.NPUPN_ITS ---
Subjective NPU 2 Subjective: Patient presented today reporting that he is doing okay. He acknowledged that some of the events on the unit have gotten him a little spooked. He reports that he does understand he is going to go over to the [facility] and have his hand evaluated to make sure there were no issues from an inadvertent moment where his wrap lacked integrity. Otherwise he reports that he is responding well to the medication and doing well in this time away from substances of abuse. He does not have a clear process by which he is going to avoid future episodes which is what we are really trying to get him to work on. He denies any side effects to the medication. Mental Status Exam 2 MSE Comments: This is an overweight versus obese white male in hospital scrubs with limited grooming and eye contact. No abnormal movements except for psychomotor retardation. Cooperative with exam in mild distress. Speech was decreased rate and volume. Mood described as a little better, affect mostly congruent and less subdued. Thought process appeared linear and mostly organized. Thought content: Patient denies homicidal but endorses suicidal ideation, there were no delusions reported but patient does endorse feeling like people are out to get him, he denied visual but did endorse auditory hallucinations. The patient presents with suicidal ideation, auditory hallucinations, anxiety, and depression. They report feeling like they have a ton of weight on their shoulders, difficulty breathing at times, and feelings of panic, nervousness, and shaking. They also express feelings of paranoia, believing that people think negatively of them. The patient reports hearing voices that tell them to harm themselves or others and that they are worthless. They also experience nightmares and flashbacks related to their PTSD. Attention and concentration were intact and memory was mostly reliable but none were formally tested. He is alert and oriented x 3. Insight, judgment and impulse control are all limited. Vitals/I&O/Wt Last Vital Signs Temp 98.1 F 07/23/24 06:00 Pulse 81 07/23/24 06:00 Resp 16 07/23/24 06:00 BP 95/62 07/23/24 06:00 Pulse Ox 94 07/23/24 06:00 O2 Del Method Room Air 07/22/24 14:00 Data NPU 07/19/24 10:18 07/19/24 10:18 A&P Assessment and plan (1) Depression: Qualifiers: Depression Type: unspecified Qualified Code(s): F32.9 - Major depressive disorder, single episode, unspecified (2) History of intravenous drug use in remission: (3) Methamphetamine abuse, episodic: (4) Anxiety and depression: (5) Post-traumatic stress disorder, chronic: (6) Cannabis dependence, uncomplicated: (7) Major depressive disorder, recurrent severe without psychotic features: (8) Depression with suicidal ideation: (9) Self mutilating behavior: Plan This is a 48-year-old male with history of a past inpatient hospitalization and significant trauma in his life with recent feeling that his medications have not been working. The patient is experiencing significant psychiatric symptoms, particularly with managing their schizophrenia, major depressive disorder, generalized anxiety disorder, and post-traumatic stress disorder. Their current pharmacotherapy regimen appears to be suboptimal, and they have a history of medication non-compliance. They have a history of self-injurious behavior and suicidal ideation, and they continue to experience suicidal ideation and auditory hallucinations. 1. Continue current medication. Started Lexapro 10 mg p.o. daily. Discontinue Pristiq. 2. Continue every 15 minute checks for safety. 3. Encourage individual group and milieu therapy. 4. Encourage sober living treatment after discharge at the highest level of care to which he is willing to commit. 5. Obtain collateral information. 6. Patient's reporting that he is interested in discharging sooner rather than later. We agreed we would reach out to his outpatient provider about some options moving forward. Involuntary Hold Information 2 96 Hour Hold: 96 Hour Involuntary Admission: No Attestations NPU 2 Medical Necessity Statement*: Inpatient hospitalization is medically necessary and the clinically appropriate intervention at this time. We will monitor medication to make changes as indicated. His likely length of stay 2-4 days. Coding Level of Care Code Acute Code for [facility] Diagnoses Depression, unspecified depression type F32.9 Depression Type: unspecified History of intravenous drug use in remission Z87.898 Methamphetamine abuse, episodic F15.10 Anxiety and depression F41.9; F32.9 Post-traumatic stress disorder, chronic F43.12 Cannabis dependence, uncomplicated F12.20 Major depressive disorder, recurrent severe without psychotic features F33.2 Depression with suicidal ideation F32.A; R45.851 Self mutilating behavior Z72.89
--- NOTE | 2024-07-23 17:03 | PC.OT ---
OT ORDERS RECIEVED FOR SPLINT. PATIENT IS SCHEDULED TO SEE OT HAND THERAPIST AT THE [facility] ON 07/24 @0781. NURSE KAREEM SYLVESTER.
[2024-07-23] MEDS: hyDROXYzine 25 mg Capsule 50 MG PO ×2 (17:10→21:22)
[2024-07-23 20:44] VITALS: BP 115/65; PULSE 71; RESP 18; TEMP 36.6; O2SAT 95
[2024-07-23] MEDS: prazosin 1 mg Capsule 2 MG PO (21:22)
[2024-07-23] MEDS: mirtazapine 30 mg Tablet PO (21:22)
[2024-07-23] MEDS: prazosin 5 mg Capsule PO (21:22)
[2024-07-24 06:00] VITALS: PULSE 106; RESP 18; TEMP 36.8; O2SAT 94
[2024-07-24] MEDS: HYDROcodone-acetaminophen 5-325 mg Tablet 1 TAB PO ×4 (06:21→21:22)
[2024-07-24] MEDS: levETIRAcetam 500 mg Tablet 1500 MG PO ×2 (08:06→17:20)
[2024-07-24] MEDS: paliperidone ER 6 mg Tablet 12 MG PO (08:06)
[2024-07-24] MEDS: pantoprazole DR 40 mg Tablet PO (08:07)
[2024-07-24] MEDS: escitalopram 10 mg Tablet PO (08:07)
[2024-07-24] MEDS: divalproex DR 500 mg Tablet PO ×2 (08:07→17:19)
--- NOTE | 2024-07-24 11:02 | PC.NURSE ---
OT, Noy, examined patient's splint this morning to assure it was on and wrapped correctly with this RN present. OT reported that it was wrapped well and placed correctly, but that she would bring down moleskin later due to the splint rubbing his pinky finger and causing redness and irritation.
[2024-07-24] MEDS: nicotine 21 mg Patch 1 PATCH TRANSDERMA (13:35)
[2024-07-24] MEDS: hyDROXYzine 25 mg Capsule 50 MG PO (13:36)
[2024-07-24 14:00] VITALS: BP 102/63; PULSE 83; RESP 18; TEMP 37.3; O2SAT 93
[2024-07-24 15:43] VITALS: PULSE 85; RESP 18; O2SAT 93
--- NOTE | 2024-07-24 16:40 | PC.OT ---
OT splinting order cancelled per Tex Garcia, OTR/L and Noy Apodaca OTR/L due to pt in a soft splint.
--- NOTE | 2024-07-24 18:44 | W.PM.NPUPNS ---
Subjective NPU Subjective: Patient presented today reporting that he is doing okay. We discussed the concerns about discharge and agreed that discharge would happen by Saturday. We discussed meeting in the morning to determine whether there would be a weekend discharge. We discussed there being some instability about his plan to discharge back home as the person he lives with his saying he is not living welcome there. We discussed whether or not that setting might create a challenge and we ignite some of the issues that brought him to the hospital. Otherwise he reports that he is doing fine and denied any side effects to the medication. We will evaluate if social work was able to get him some appointments for after discharge. Mental Status Exam MSE Comments: This is an overweight versus obese white male in hospital scrubs with limited grooming and eye contact. No abnormal movements except for psychomotor retardation. Cooperative with exam in mild distress. Speech was decreased rate and volume. Mood described as a little better, affect mostly congruent and less subdued. Thought process appeared linear and mostly organized. Thought content: Patient denies homicidal but endorses suicidal ideation, there were no delusions reported but patient does endorse feeling like people are out to get him, he denied visual but did endorse auditory hallucinations. The patient presents with suicidal ideation, auditory hallucinations, anxiety, and depression. They report feeling like they have a ton of weight on their shoulders, difficulty breathing at times, and feelings of panic, nervousness, and shaking. They also express feelings of paranoia, believing that people think negatively of them. The patient reports hearing voices that tell them to harm themselves or others and that they are worthless. They also experience nightmares and flashbacks related to their PTSD. Attention and concentration were intact and memory was mostly reliable but none were formally tested. He is alert and oriented x 3. Insight, judgment and impulse control are all limited. Vitals/I&O/Wt Last Vital Signs Temp 99.2 F 07/24/24 14:00 Pulse 85 07/24/24 15:43 Resp 18 07/24/24 15:43 BP 102/63 07/24/24 14:00 Pulse Ox 93 07/24/24 15:43 O2 Del Method Room Air 07/24/24 15:43 Data NPU 07/19/24 10:18 07/19/24 10:18 A&P Assessment and plan (1) Depression: Qualifiers: Depression Type: unspecified Qualified Code(s): F32.9 - Major depressive disorder, single episode, unspecified (2) History of intravenous drug use in remission: (3) Methamphetamine abuse, episodic: (4) Anxiety and depression: (5) Post-traumatic stress disorder, chronic: (6) Cannabis dependence, uncomplicated: (7) Major depressive disorder, recurrent severe without psychotic features: (8) Depression with suicidal ideation: (9) Self mutilating behavior: Plan This is a 48-year-old male with history of a past inpatient hospitalization and significant trauma in his life with recent feeling that his medications have not been working. The patient is experiencing significant psychiatric symptoms, particularly with managing their schizophrenia, major depressive disorder, generalized anxiety disorder, and post-traumatic stress disorder. Their current pharmacotherapy regimen appears to be suboptimal, and they have a history of medication non-compliance. They have a history of self-injurious behavior and suicidal ideation, and they continue to experience suicidal ideation and auditory hallucinations. 1. Continue current medication. Started Lexapro 10 mg p.o. daily. Discontinued Pristiq. 2. Continue every 15 minute checks for safety. 3. Encourage individual group and milieu therapy. 4. Encourage sober living treatment after discharge at the highest level of care to which he is willing to commit. 5. Obtain collateral information. 6. Patient's reporting that he is interested in discharging sooner rather than later. We agreed we would reach out to his outpatient provider about some options moving forward. Involuntary Hold Information 96 Hour Hold: 96 Hour Involuntary Admission: No Attestations NPU Medical Necessity Statement*: Inpatient hospitalization is medically necessary and the clinically appropriate intervention at this time. We will monitor medication to make changes as indicated. His likely length of stay 2-4 days. Coding Level of Care Code Acute Code for [facility] Diagnoses Depression, unspecified depression type F32.9 Depression Type: unspecified History of intravenous drug use in remission Z87.898 Methamphetamine abuse, episodic F15.10 Anxiety and depression F41.9; F32.9 Post-traumatic stress disorder, chronic F43.12 Cannabis dependence, uncomplicated F12.20 Major depressive disorder, recurrent severe without psychotic features F33.2 Depression with suicidal ideation F32.A; R45.851 Self mutilating behavior Z72.89
[2024-07-24] MEDS: mirtazapine 30 mg Tablet PO (20:32)
[2024-07-24] MEDS: prazosin 5 mg Capsule PO (20:33)
[2024-07-24 20:54] VITALS: BP 119/76; PULSE 78; RESP 18; TEMP 36.4; O2SAT 95
[2024-07-24] MEDS: OLANZapine 5 mg ODT PO (21:03)
[2024-07-25] MEDS: HYDROcodone-acetaminophen 5-325 mg Tablet 1 TAB PO ×2 (03:46→08:03)
[2024-07-25 06:00] VITALS: RESP 16
[2024-07-25] MEDS: paliperidone ER 6 mg Tablet 12 MG PO (08:03)
[2024-07-25] MEDS: escitalopram 10 mg Tablet PO (08:04)
[2024-07-25] MEDS: levETIRAcetam 500 mg Tablet 1500 MG PO (08:04)
[2024-07-25] MEDS: pantoprazole DR 40 mg Tablet PO (08:04)
[2024-07-25] MEDS: divalproex DR 500 mg Tablet PO (08:04)
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
[2024-07-25 08:34] VITALS: RESP 16
== END 2024-07-25 11:37 | disposition home or self-care (01) | DRG 885 ==
LOC: ER 10:14 → NP 07-20 15:50
PROVIDERS: Admitting Provider Psychiatry & Neurology Psychiatry; Emergency Provider Emergency Medicine; PCP Nurse Practitioner Family; Visit Provider Psychiatry & Neurology Psychiatry
DX: F25.1 Schizoaffective disorder, depressive type (principal); R45.851 Suicidal ideations; G40.802 Other epilepsy, not intractable, without status epilepticus; L30.9 Dermatitis, unspecified; F43.12 Post-traumatic stress disorder, chronic; F12.20 Cannabis dependence, uncomplicated; F17.210 Nicotine dependence, cigarettes, uncomplicated; G47.00 Insomnia, unspecified; F41.9 Anxiety disorder, unspecified; E55.9 Vitamin D deficiency, unspecified; Z86.19 Personal history of other infectious and parasitic diseases; F15.10 Other stimulant abuse, uncomplicated; K21.9 Gastro-esophageal reflux disease without esophagitis; R45.88 Nonsuicidal self-harm; S62.666A Nondisplaced fracture of distal phalanx of right little finger, initial encounter for closed fracture; X58.XXXA Exposure to other specified factors, initial encounter; R91.1 Solitary pulmonary nodule; Z91.51 Personal history of suicidal behavior; J43.9 Emphysema, unspecified
CPT/HCPCS: 36415; 71045; 73130; 80053; 80306; 80307; 81001; 84443; 85025; 87426; 93005; 97150; 97165; 99285; J3535

== ENCOUNTER 2024-11-04 20:00 | Outpatient (CLI) | payer MEDICARE, MEDICAID, SELFPAY ==
[2024-05-08 11:23] VITALS: BP 108/74; BMI 27.9
== END 2024-11-04 20:01 | disposition home or self-care (01) ==
LOC: SLEEP 23:33
PROVIDERS: PCP Nurse Practitioner Family; Visit Provider Nurse Practitioner Family
DX: G47.33 Obstructive sleep apnea (adult) (pediatric) (principal); G47.36 Sleep related hypoventilation in conditions classified elsewhere
CPT/HCPCS: 95810

== ENCOUNTER → 2024-12-31 14:41 | Outpatient (BNVA) | payer MEDICARE, MEDICAID, SELFPAY ==
[2024-05-08 11:23] VITALS: BP 108/74; BMI 27.9
== END ==
PROVIDERS: PCP Nurse Practitioner Family; Visit Provider Nurse Practitioner Family
DX: D64.9 Anemia, unspecified (principal); E55.9 Vitamin D deficiency, unspecified; D51.8 Other vitamin B12 deficiency anemias; L60.3 Nail dystrophy; Z13.6 Encounter for screening for cardiovascular disorders; B19.20 Unspecified viral hepatitis C without hepatic coma; T14.8XXA Other injury of unspecified body region, initial encounter; Z87.898 Personal history of other specified conditions
CPT/HCPCS: 80053; 80061; 81003; 82306; 82607; 82728; 83036; 83550; 83880; 84443; 85025; 85610; 87806

== ENCOUNTER → 2025-01-07 07:33 | Outpatient (BNVA) | payer MEDICARE, MEDICAID, SELFPAY ==
[2025-01-05 13:07] VITALS: BP 110/72; BMI 27.8
== END ==
PROVIDERS: PCP Nurse Practitioner Family; Visit Provider Podiatrist Foot & Ankle Surgery
DX: L60.3 Nail dystrophy (principal)
CPT/HCPCS: 99204

== ENCOUNTER 2025-01-11 07:38 | Outpatient (CLI) | payer MEDICARE, MEDICAID, SELFPAY ==
[2025-01-05 13:07] VITALS: BP 110/72; BMI 27.8
--- NOTE | 2025-01-11 08:00 | CT_ITS ---
WS: [id number] CT chest w con* [id number] HISTORY: R91.1 - Solitary pulmonary nodule TECHNIQUE: Axial imaging performed through the thorax. Coronal and sagittal reformats are submitted. All CT scans at [facility] use at least one of these dose optimization techniques: automated exposure control; mA and/or kV adjustment per patient size (includes targeted exams where dose is matched to clinical indication); or iterative reconstruction. CONTRAST: Omnipaque 350; 100 mL IV. DLP: 389.15 mGy.cm COMPARISON: Chest radiograph 07/19/2024 Lungs and central airway: Paraseptal emphysema. Consolidation with surrounding groundglass attenuation RIGHT lower lobe. There is associated bronchiectasis. The entire area of concern measures approximately 3.7 x 2.8 cm. There are a few additional very tiny scattered micronodules. RIGHT upper lobe very tiny slightly spiculated opacifications. No abnormality noted at the LEFT lung base as seen on the radiograph. Pleura: Normal. No pleural effusion. Heart and pericardium: Normal size heart with no pericardial effusion. Mediastinum and alma rosa: Minimally enlarged RIGHT hilar lymph nodes measuring 10 mm. No adenopathy. Vessels: Minimal atherosclerosis aorta. Normal size pulmonary artery. Chest wall and lower neck: No soft tissue masses. Upper abdomen: Mild nodular thickening of the LEFT adrenal gland area of nodularity measures 11 mm. Normal RIGHT adrenal gland. Osseous structures: Mild anterior wedging of T1-2. CT/CT chest w con* [id number] IMPRESSION: 1. No nodule or mass at the LEFT lung base. 2. Consolidation with surrounding groundglass attenuation RIGHT lower lobe roseanne sures 3.7 x 2.8 cm. There are a few additional very tiny spiculated nodules in the RIGHT upper lobe. Recommend short-term follow-up for pneumonia. After treat ment for pneumonia follow-up chest CT in 3 months should be obtained. 3. Top normal size RIGHT hilar lymph node 10 mm. 4. Very minimal nodular thickening of the LEFT adrenal gland. 5. Paraseptal emphysema.
[2025-01-11] MEDS: iohexol 350 mg/mL 500 mL Btl (per mL) IV (08:17)
== END 2025-01-11 07:39 | disposition home or self-care (01) ==
PROVIDERS: PCP Nurse Practitioner Family; Visit Provider Nurse Practitioner Family
DX: R91.1 Solitary pulmonary nodule (principal); R91.8 Other nonspecific abnormal finding of lung field; J43.8 Other emphysema; J47.9 Bronchiectasis, uncomplicated; E27.8 Other specified disorders of adrenal gland; M48.54XA Collapsed vertebra, not elsewhere classified, thoracic region, initial encounter for fracture
CPT/HCPCS: 71260

== ENCOUNTER → 2025-01-28 07:13 | Outpatient (BNVA) | payer MEDICARE, MEDICAID, SELFPAY ==
[2025-01-05 13:07] VITALS: BP 110/72; BMI 27.8
== END ==
PROVIDERS: PCP Nurse Practitioner Family; Visit Provider Podiatrist Foot & Ankle Surgery
DX: B35.1 Tinea unguium (principal)
CPT/HCPCS: 99214

== ENCOUNTER → 2025-02-17 12:07 | Outpatient (BNVA) | payer MEDICARE, MEDICAID, SELFPAY ==
[2025-01-05 13:07] VITALS: BP 110/72; BMI 27.8
== END ==
PROVIDERS: PCP Nurse Practitioner; Visit Provider Specialist
DX: R29.90 Unspecified symptoms and signs involving the nervous system (principal); F15.10 Other stimulant abuse, uncomplicated; G40.109 Localization-related (focal) (partial) symptomatic epilepsy and epileptic syndromes with simple partial seizures, not intractable, without status epilepticus; F43.12 Post-traumatic stress disorder, chronic
CPT/HCPCS: 99214

== ENCOUNTER → 2025-02-24 10:57 | Outpatient (BNVA) | payer MEDICARE, MEDICAID, SELFPAY ==
[2025-01-05 13:07] VITALS: BP 110/72; BMI 27.8
== END ==
PROVIDERS: PCP Nurse Practitioner; Visit Provider Nurse Practitioner Family
DX: L50.1 Idiopathic urticaria (principal); L81.4 Other melanin hyperpigmentation; D48.5 Neoplasm of uncertain behavior of skin; L57.0 Actinic keratosis
CPT/HCPCS: 11102; 17000; 99203

== ENCOUNTER → 2025-03-17 11:19 | Outpatient (BNVA) | payer MEDICARE, MEDICAID, SELFPAY ==
[2025-01-05 13:07] VITALS: BP 110/72; BMI 27.8
== END ==
PROVIDERS: PCP Nurse Practitioner Family; Visit Provider Podiatrist Foot & Ankle Surgery
DX: L60.8 Other nail disorders (principal); B35.1 Tinea unguium
CPT/HCPCS: 99213

== ENCOUNTER → 2025-03-19 11:35 | Outpatient (BNVA) | payer MEDICARE, MEDICAID, SELFPAY ==
[2025-01-05 13:07] VITALS: BP 110/72; BMI 27.8
== END ==
PROVIDERS: PCP Nurse Practitioner Family; Visit Provider Podiatrist Foot & Ankle Surgery
DX: B35.1 Tinea unguium (principal)
CPT/HCPCS: 80053

== ENCOUNTER 2025-04-06 08:04 | Outpatient (CLI) | payer MEDICARE, MEDICAID, SELFPAY ==
[2025-01-05 13:07] VITALS: BP 110/72; BMI 27.8
--- NOTE | 2025-04-06 08:00 | CT_ITS ---
WS: [id number] CT chest w con* [id number] HISTORY: R91.1 - Solitary pulmonary nodule TECHNIQUE: Axial imaging performed through the thorax. Coronal and sagittal reformats are submitted. All CT scans at [facility] use at least one of these dose optimization techniques: automated exposure control; mA and/or kV adjustment per patient size (includes targeted exams where dose is matched to clinical indication); or iterative reconstruction. CONTRAST: Omnipaque 350; 100 mL IV. DLP: 403.34 mGy.cm COMPARISON: 01/11/2025 Lungs and central airway: Paraseptal emphysema. Recently described RIGHT lower lobe consolidation with surrounding groundglass attenuation has completely resolved. The scattered very subtle irregular nodules have also resolved. No residual mass. No pneumonia. Pleura: Normal. No pleural effusion. Heart and pericardium: Normal size heart with no pericardial effusion. Mediastinum and alma rosa: No mediastinum or hilar adenopathy. Vessels: Very minimal atherosclerosis aorta. Normal size pulmonary artery. Chest wall and lower neck: No soft tissue masses. Upper abdomen: Small hiatal hernia. Osseous structures: No destructive bone lesions. Very mild anterior wedging superior endplates of T2, T3 and T4. No retropulsion. CT/CT chest w con* [id number] IMPRESSION: 1. Complete resolution recently described RIGHT lower lobe consolidation and g roundglass attenuation. Consistent with successful treatment of pneumonia. 2. No residual inflammatory nodules throughout the lungs. 3. No pathologic mediastinal or hilar adenopathy.
[2025-04-06] MEDS: iohexol 350 mg/mL 500 mL Btl (per mL) IV (08:50)
== END 2025-04-06 08:05 | disposition home or self-care (01) ==
LOC: RAD 08:05
PROVIDERS: PCP Nurse Practitioner Family; Visit Provider Nurse Practitioner Family
DX: R91.1 Solitary pulmonary nodule (principal); R91.8 Other nonspecific abnormal finding of lung field; J43.8 Other emphysema
CPT/HCPCS: 71260

== ENCOUNTER 2025-07-09 18:58 | Emergency (ER) | payer MEDICARE, MEDICAID, SELFPAY ==
[2025-01-05 13:07] VITALS: BP 110/72; BMI 27.8
[2025-07-09 18:59] VITALS: BP 115/80; PULSE 91; RESP 16; TEMP 36.6; O2SAT 97; BMI 27.8
--- OUTSIDE RECORDS SUMMARY | 2025-07-09 19:12 | XMS_ITS | Clinical Summary ---
Author Organization [facility] Address [address] [facility] [address] [place] [address] Phone Care Team Providers Care Fabrication Department Supervisor Name Role Phone Jolynn Tracy DO Primary Care Provider [phone] Allergies Active Allergy Reactions Criticality Noted Date Comments Aspirin Other (See Comments) 12/26/2016 Ate a whole in the stomach lining Medications Paliperidone Palmitate (INVEGA SUSTENNA) 117 mg/0.75 mL Syringe Inject 117 mg by intramuscular injection every 30 days. Active eslicarbazepin e (APTIOM) 200 mg Tablet Take 200 mg by mouth 2 times daily. Active baclofen (LIORESAL) 20 mg tablet Take 20 mg by mouth 3 times daily as needed for Pain. Active gabapentin (NEURONTIN) 800 mg tablet Take 800 mg by mouth 3 times daily. Active OMEPRAZOLE (PRILOSEC ORAL) Take by mouth daily. Active OTHER Sinus pill that starts with an L . Active albuterol HFA 90 mcg inhaler Take 2 Puffs by inhalation every 6 hours as needed for Shortness of Breath. Active cephALEXin (KEFLEX) 500 mg capsule Take 1 Capsule (500 mg) by mouth 4 times daily. 30 Capsule None 7 Active levETIRAcetam (KEPPRA) 500 mg tablet Take 500 mg by mouth 2 times daily. Active Active Problems Problem Noted Date Diagnosed Date Tobacco use 12/26/2016 Social History Tobacco Use Types Packs/Day Years Used Date Smoking Tobacco: Every Day Cigarettes Smokeless Tobacco: Never Alcohol Use Standard Drinks/Week Comments Yes 0 (1 standard drink = 0.6 oz pur e alcohol) occasional Sex and Gender Information Value Date Recorded Sex Assigned at Not on file Legal Sex Male 6:29 PM CDT Gender Identity Not on file Sexual Orientation Not on file Last Filed Vital Signs Vital Sign Reading Time Taken Comments Blood Pressure 121/74 10/15/2017 9:04 AM MH TEACHER Pulse 89 12/26/2016 8:37 PM CDT Temperature 36.9 C (98.4 F) 10/15/2017 9:04 AM MH TEACHER Respiratory Rate 18 10/15/2017 9:04 AM MH TEACHER Oxygen Saturation 99% 10/15/2017 9:04 AM MH TEACHER Inhaled Oxygen Concentration - - Weight 70.3 kg (155 lb) 10/15/2017 8:45 AM MH TEACHER Height 177.8 cm (5' 10 ) 10/15/2017 8:45 AM MH TEACHER Body Mass Index 22.24 10/15/2017 8:45 AM MH TEACHER Plan of Treatment Health Maintenance Due Date Last Done Comments DTAP/TDAP/TD VACCINES (1 - Tdap) 1993 HEPATITIS B VACCINES (1 of 3 - 19+ 3-dose series) 02/1994 COLORECTAL SCREENING 12/17/2019 Colorectal Cancer Screening 12/17/2019 FIT-DNA Q 3 years 12/17/2019 FIT/FOBT Q 1 year 12/17/2019 Flex Sig/CT Colonography Q 5 years 12/17/2019 ZOSTER VACCINE (1 of 2) 2024 INFLUENZA VACCINE (#1) 2025 Insurance MEDICARE PART A AND B [place] Care Teams Fabrication Department Supervisor Relationship Specialty Start Date End Date Jolynn Tracy DO [address] [address] PCP - General Family Practice 10/15/17
--- OUTSIDE RECORDS SUMMARY | 2025-07-09 19:12 | XMS_ITS | Patient Health Record ---
Author Organization [facility] Address [address] [place] [address] Support Name Relationship Address Phone Unavailable Emergency Contact Unknown Baron Brooks Guarantor Unknown [phone] Reason For Referral No Information Plan Of Treatment No Information
--- OUTSIDE RECORDS SUMMARY | 2025-07-09 19:12 | XMS_ITS | Clinical Summary ---
Author Organization [facility] Address [address] [facility] Attn: Epic Prelude ADT [place]IGUEZ [address] Care Team Providers Care Nurse Infection Control Name Role Phone Jolynn Tracy DO Primary Care Provider [phone] Encounters Date Type Department Care Team Description 06/01/2025 External Device Data STL ABSTRACTION Provider, Abstract from Last 3 Months Social History Tobacco Use Types Packs/Day Years Used Date Smoking Tobacco: Every Day Cigarettes Smokeless Tobacco: Never Alcohol Use Standard Drinks/Week Comments Yes 0 (1 standard drink = 0.6 oz pur e alcohol) Sex and Gender Information Value Date Recorded Sex Assigned at Not on file Legal Sex Male 1:10 PM FLYING SHEAR OPERATOR Gender Identity Not on file Sexual Orientation Not on file Last Filed Vital Signs Vital Sign Reading Time Taken Comments Blood Pressure 121/74 10/15/2017 9:04 AM FLYING SHEAR OPERATOR Pulse 89 12/26/2016 8:37 PM CDT Temperature 36.9 C (98.4 F) 10/15/2017 9:04 AM FLYING SHEAR OPERATOR Respiratory Rate 18 10/15/2017 9:04 AM FLYING SHEAR OPERATOR Oxygen Saturation - - Inhaled Oxygen Concentration - - Weight 70.3 kg (155 lb) 10/15/2017 8:45 AM FLYING SHEAR OPERATOR Height 177.8 cm (5' 10 ) 10/15/2017 8:45 AM FLYING SHEAR OPERATOR Body Mass Index 22.24 10/15/2017 8:45 AM FLYING SHEAR OPERATOR Plan of Treatment Health Maintenance Due Date Last Done Comments DTAP/TDAP/TD VACCINES (1 - Tdap) 1993 HEPATITIS B VACCINES (1 of 3 - 19+ 3-dose series) 02/1994 COLORECTAL SCREENING 12/17/2019 Colorectal Cancer Screening 12/17/2019 FIT-DNA Q 3 years 12/17/2019 FIT/FOBT Q 1 year 12/17/2019 Flex Sig/CT Colonography Q 5 years 12/17/2019 ZOSTER VACCINE (1 of 2) 2024 INFLUENZA VACCINE (#1) 2025 Insurance [place] MEDICARE PART A AND B [facility] DUAL COMPLETE O [facility] [id number] [employer] [facility] Care Teams Nurse Infection Control Relationship Specialty Start Date End Date Jolynn Tracy DO [address] [address] PCP - General Family Practice 10/15/17
--- NOTE | 2025-07-09 19:15 | USR_ITS ---
PROCEDURE INFORMATION: Exam: US Scrotum Exam date and time: 07/09/2025 8:34 PM Age: 49 years old Clinical indication: Scrotum pain; Additional info: Scrotal pain TECHNIQUE: Imaging protocol: Real-time ultrasound of the scrotum and contents with color Doppler and image documentation. COMPARISON: US abdomen complete* [id number] 06/11/2023 8:07 AM FINDINGS: Right testicle: Normal. No mass. Normal color Doppler and arterial waveforms. No torsion. Left testicle: Normal. No mass. Normal color Doppler and arterial waveforms. No torsion. Epididymides: Normal. Scrotum/soft tissues: See Lymph nodes finding. Lymph nodes: Several prominent nonspecific left inguinal canal lymph nodes measuring up to 7 mm. US/US scrotum [id number] IMPRESSION: 1. Testicles appear within normal limits bilaterally with color blood flow. 2. Several prominent nonspecific left inguinal canal lymph nodes measuring up to 7 mm.
[2025-07-09 19:26] VITALS: BP 127/72; PULSE 88; RESP 18; O2SAT 95
[2025-07-09 19:45] LABS: Glucose Urine UA Negative (Normal); Nitrate Urine Negative (Negative)
[2025-07-09 19:50] LABS: Add Urine Microscopic? YES
[2025-07-09 19:57] LABS: Specific Gravity, Urine 1.039 (1.005-1.030)
--- NOTE | 2025-07-09 20:04 | ED_ITS ---
HPI - Abdominal Pain 2 General: Chief Complaint: Abdominal Pain Stated Complaint: working in yard pulled something in groin abd pain Time Seen by Provider: 07/09/25 19:13 History of Present Illness: Patient is a 49-year-old gentleman with COPD that was pulling weeds, and his legs slipped, which felt like his testicle went the other way on the left side, and he had pain in his testicle on the left side, and inguinal area. This occurred 2 hours ago. He did attempt to take Aleve, and ibuprofen, however has continuous pain. He is able to void. He has not had previous history of injury to his scrotum. Associated Symptoms: Denies dysuria, nausea and vomiting Related Data Home Medications ?Medication ?Instructions ?Recorded ?Confirmed calcium 1,000 mg (as 1 tab PO DAILY 01/28/2507/08 carbonate)-vitamin D3 20 mcg (800 unit) tablet Previous Rx's ?Medication ?Instructions ?Recorded albuterol sulfate 90 mcg/actuation 2 puff inhalation Q 6H PRN 06/24/24 aerosol inhaler (Ventolin HFA) shortness of breath or wheezing #8.5 grams mupirocin 2 % topical ointment 1 applic topical TID 0 days #22 11/12/24 grams budesonide 160 mcg-glycopyr 9 2 inh inhalation BID #10 .7 grams 01/14/25 mcg-formot 4.8 mcg/actuation HFA inhaler (Breztri Aerosphere) terbinafine HCl 250 mg tablet 250 mg PO DAILY 90 days #90 tabs 01/28/25 divalproex 500 mg tablet,delayed 500 mg PO BID 30 days #60 tabs 02/17/25 release (Depakote) dexlansoprazole 30 mg 30 mg PO DAILY 90 days #90 c aps 03/09/25 capsule,biphase delayed release (Dexilant) ibuprofen 600 mg tablet See Rx Instructions .Route 0 05/03/25 .COMPLEX #60 tabs ketoconazole 2 % shampoo See Rx Instructions .Route 0 06/15/25 .COMPLEX #120 mL levetiracetam 750 mg tablet See Rx Instructions .Route 06/15/25 .COMPLEX #360 tabs hydroxyzine pamoate 50 mg capsule 100 mg (2 x 50 mg) P O BID PRN 06/22/25 anxiety #120 caps mirtazapine 30 mg tablet (Remeron) 30 mg PO DAILY #30 tabs 06/22/25 paliperidone palmitate 234 mg/1.5 234 mg (1.5 mL) IM Q 30D #1.5 mL 06/22/25 mL intramuscular syringe (Invega Sustenna) paroxetine HCl 10 mg tablet (Paxil) 10 mg PO DAILY #30 tabs 06/22/25 prazosin 5 mg capsule 10 mg (2 x 5 mg) PO BEDTIME #60 06/22/25 caps Allergies Allergy/AdvReac Type Severity Reaction Status Date / Time aspirin (From [employer] Aspirin) Allergy ulcer Verified 06/22/25 11:21 Review of Systems 2 General: Reports: 10 or more systems reviewed and unremarkable except in HPI and below ENMT: Denies: throat pain or nasal discharge Card: Denies: chest pain or palpitations Resp: Denies: dyspnea or non-productive cough GI: Reports: abdominal pain; Denies: nausea or vomiting : Reports: genital pain and testicular pain; Denies: flank pain, difficulty urinating, dysuria, genital lesions, penile discharge or scrotal swelling Musc: Denies: neck pain, back pain or extremity pain Psych: Denies: anxiety or depression PFSH ED 2 PFSH: Medical History (Updated 07/09/25 @ 21:13 by LEIGHTON Orellana) Ground glass opacity present on imaging of lung Lung nodule seen on imaging study Claustrophobia Skin lesion of upper extremity Change in multiple pigmented skin lesions Paraseptal emphysema Pneumonia Bromidrosis Ingrown toenail Onychomycosis Orthostatic dizziness Pre-syncope Carpal tunnel syndrome on right Superficial laceration of wrist Closed fracture of metacarpal of right hand Fracture of fifth metacarpal bone of right hand Cellulitis of scalp Seborrheic dermatitis of scalp Obstructive sleep apnea Hand fracture History of trigger finger Encounter for laboratory test Eczema Encounter for screening for cardiovascular disorders On combination antipsychotic drug therapy Cough Major depressive disorder, recurrent severe without psychotic features Otitis media of both ears Vitamin B12 deficiency (dietary) anemia Medication management Anemia Black tarry stools Post-traumatic stress disorder, chronic Cannabis dependence, uncomplicated Other stimulant dependence, uncomplicated Nicotine dependence, cigarettes, with other nicotine-induced disorders Psychiatric care Insomnia Nightmare Carpal tunnel syndrome of left wrist Anxiety and depression Wound abscess Vitamin D deficiency Nausea Abdominal pain Back pain Pruritic rash Hepatitis C without hepatic coma Chronic nausea Blood in stool Methamphetamine abuse, episodic History of intravenous drug use in remission GERD (gastroesophageal reflux disease) Epilepsy Depression Back pain Surgical History History of carpal tunnel release History of esophagogastroduodenoscopy (EGD) 09/26 dr. osborn Status post knee surgery Family History Other CAD (coronary artery disease) Cancer Hypertension Social History Smoking and tobacco/nicotine status: current every day tobacco/nicotine user cigarettes Packs smoked per day: 1 Years cigarettes smoked: 43 Quit status (tobacco/nicotine): has tried quititng Number of times tried to quit tobacco: 2 Second hand smoke exposure: Yes Alcohol intake: current Alcohol intake frequency: holidays/special occasions only Alcohol type: hard liquor Substance/Drug Use: current Substance/Drug use frequency: daily Other substance/drug use details: as much as I can , dabbles in meth Adopted: No Caregiver/support person: No Lives independently: No Household members: significant other and other Details: friend, friends son, and another room mate Housing: House Marital status: Single Number of children: 0 Highest education level completed: 11th Grade Education level details: working on high school diploma service: No Current occupational status: disabled Current occupational exposures/hazards: No Pets and animals: Yes Pets & animals: dog(s) Pets & animal details: I have a dog but togeter 3 dogs and 1 cats Leisure activites: art, music, reading and other Leisure activities details: Epic[employer]'s, jeannette art Sexually active: Yes Do you think of yourself as: Straight/Heterosexual Current gender identity: Male Bita/Presybeterian: Other Special bita needs: No Agree to transfusion: Yes Physical Exam 2 Const: COMMON NORMALS: no acute distress, average body habitus, patient oriented x3, no limitations, healthy appearing, alert and well nourished HENMT: COMMON NORMALS: normocephalic and atraumatic HEAD & SCALP: n ormocephalic and atraumatic Chest: COMMONS NORMALS: normal inspection of the chest and normal palpation of entire chest wall Resp: COMMON NORMALS: normal respiratory effort, No retractions and clear to auscultation bilaterally AUSCULTATION: clear to auscultation bilaterally Cardio: COMMON NORMALS: regular rate and regular rhythm RATE: regular rate RHYTHM: regular rhythm GI: COMMON NORMALS: Normal to inspection, nondistended, normoactive bowel sounds present, Soft to palpation and non-tender PALPATION: Yes Soft to palpation : MALE GROIN/PERINEUM EXAM: No ecchymosis, No edema, No erythema, No hernia, No inguinal lymphadenopathy and Yes tenderness (left inguinal, no edema, no swelling) PENIS: normal penis and circumcised TESTES: Yes testicular lie normal, No Enlarged testicle(s) present, Yes epididymides normal, No epididymal mass and No epididymal tenderness GENITAL IMAGES (MALE): 1. pain Extremity: COMMON NORMALS: normal to inspection, full ROM and capillary refill normal Neuro: COMMON NORMALS: patient oriented x3 SENSORIUM/ORIENTATION: Yes alert Psych: COMMON NORMALS: mental status grossly normal, Normal thought process present, cooperative and normal affect THOUGHT PROCESS: Normal thought process present Course 2 Vital Signs: Vital signs: Vital Signs Temperature 97.9 F 07/09/25 18:59 Pulse Rate 81 07/09/25 21:37 Respiratory Rate 16 07/09/25 21:37 Blood Pressure 109/81 07/09/25 21:37 Pulse Oximetry 97 07/09/25 21:37 Oxygen Delivery Me thod Room Air 07/09/25 19:26 MDM - Abdominal Pain Medical Decision Making Patient is a 49-year-old gentleman that comes in after he was pulling weeds, slipped, and felt like his left testicle went the other way with his feet. He did not fall on the ground. This occurred just 2 hours prior to arrival. He did attempt home treatment to no availability. Ultrasound shows good blood flow to both testes. There was no hernia on examination. His pain is more controlled after morphine. Will plan on giving him [place] x 1, and have him ice, Tylenol, ibuprofen, and follow-up with his primary care. Lab Data Labs/Radiology: Radiology Impressions Scrotum Ultrasound 07/09/25 19:15 IMPRESSION: 1. Testicles appear within normal limits bilaterally with color blood flow. 2. Several prominent nonspecific left inguinal canal lymph nodes measuring up to 7 mm. Laboratory Results Urine Color Dark yellow (Yellow) A 07/09/25 19:16 Urine Appearance Cloudy (CLEAR) A 07/09/25 19:16 Urine pH 5.5 (5-7) 07/09/25 19:16 Ur Specific [place] 1.039 (1.005-1.030) H 07/09/25 19:16 Urine Protein Trace (Negative) A 07/09/25 19:16 Urine Glucose (UA) Negative (Normal) 07/09/25 19:16 Urine Ketones Trace (Negative) 07/09/25 19:16 Urine Blood 1+ (Negative) A 07/09/25 19:16 Urine Nitrate Negative (Negative) 07/09/25 19:16 Urine Bilirubin Negative (Negative) 07/09/25 19:16 Urine Urobilinogen 1.0 mg/dL (Negative) 07/09/25 19:16 Ur Leukocyte Esterase Negative (Negative) 07/09/25 19:16 Urine RBC 6-10 /hpf (0-2) 07/09/25 19:16 Urine WBC 6-10 /hpf (0-5) 07/09/25 19:16 Ur Squamous Epith Cells 0-5 /hpf (0-5) 07/09/25 19:16 Amorphous Sediment Not Reportable 07/09/25 19:16 Urine Bacteria None seen /hpf (NONE) 07/09/25 19:16 Hyaline Casts 5.77 /lpf 07/09/25 19:16 XR interpretation done by ED provider, pending radiology final review Discharge Plan Discharge Patient Disposition: Home Clinical Impression: Acute pain in scrotum Condition: Stable Prescriptions: No Action divalproex [Depakote] 500 mg tablet,delayed release (DR/EC) 500 mg PO BID 30 Days Qty: 60 11RF mupirocin 2 % ointment 1 applic topical TID Qty: 22 0RF hydroxyzine pamoate 50 mg capsule 100 mg PO BID PRN (Reason: anxiety) Qty: 120 2RF mirtazapine [Remeron] 30 mg tablet 30 mg PO DAILY Qty: 30 2RF paroxetine HCl [Paxil] 10 mg tablet 10 mg PO DAILY Qty: 30 1RF prazosin 5 mg capsule 10 mg PO BEDTIME Qty: 60 2RF Invega Sustenna 234 mg/1.5 mL syringe 234 mg IM Q30D Qty: 1.5 2RF albuterol sulfate [Ventolin HFA] 90 mcg/actuation HFA aerosol inhaler 2 puff inhalation Q6H PRN (Reason: shortness of breath or wheezing) Qty: 8.5 5RF calcium carbonate-vitamin D3 1,000 mg-20 mcg (800 unit) tablet 1 tab PO DAILY terbinafine HCl 250 mg tablet 250 mg PO DAILY 90 Days Qty: 90 0RF Breztri Aerosphere 160-9-4.8 mcg/actuation HFA aerosol inhaler 2 inh inhalation BID Qty: 10.7 5RF dexlansoprazole [Dexilant] 30 mg capsule,biphase delayed releas 30 mg PO DAILY 90 Days Qty: 90 2RF ibuprofen 600 mg tablet See Rx Instructions .ROUTE .COMPLEX Qty: 60 0RF Dose Instruction: TAKE 1 TABLET BY MOUTH TWICE DAILY NEEDED FOR PAIN Rx Instructions: TAKE 1 TABLET BY MOUTH TWICE DAILY NEEDED FOR PAIN levetiracetam 750 mg tablet See Rx Instructions .ROUTE .COMPLEX Qty: 360 2RF Dose Instruction: TAKE 2 TABLETS BY MOUTH TWICE DAILY Rx Instructions: TAKE 2 TABLETS BY MOUTH TWICE DAILY ketoconazole 2 % shampoo See Rx Instructions .ROUTE .COMPLEX Qty: 120 1RF Dose Instruction: USE one application topically TO SCALP TWICE A WEEK AND LEAVE ON FOR 5 TO 10 minutes THEN RINSE Rx Instructions: USE one application topically TO SCALP TWICE A WEEK AND LEAVE ON FOR 5 TO 10 minutes THEN RINSE Discharge Orders: Discharge ED (Routine); Ordered 07/09/25 Ordered By: Shira Hernadez Referrals: SHON Piper, EDUCATIONAL PSYCHOLOGY TEACHER [Primary Care Provider, Family Practice] Discharge Diet: Usual diet Discharge Activity: Resume usual activity Patient Instructions: Testicle Pain (ED), Opioid Safety, Pain Management, Patient Portal & Inocencio Instructions Activity Restrictions/Additional Instructions: - Your testicles are getting good blood flow, and no hernia was seen. Your official report is pending. You may ice this area that will help with pain, as well as an ibuprofen, and Tylenol. - Return to ED if you have this occur again - Suspect you did have a twisting of your testicle that straighten itself out before you got here. Suspect the pain is secondary to previous injury today. Print Language: Malawian Coding Level of Care Code ED Gas Turbine Powerplant Mechanic for Tyree Hernandez
[2025-07-09] MEDS: morphine 4 mg/mL SDV 1 mL IVP (20:20)
[2025-07-09] MEDS: ondansetron hcl ODT 4 mg Tab PO (20:20)
[2025-07-09] MEDS: HYDROcodone-acetaminophen 10-325 mg Tablet 1 TAB PO (21:36)
[2025-07-09 21:37] VITALS: BP 109/81; PULSE 81; RESP 16; O2SAT 97
== END 2025-07-09 21:39 | disposition home or self-care (01) ==
PROVIDERS: Emergency Provider Physician Assistant; PCP Nurse Practitioner Family
DX: N50.82 Scrotal pain (principal); F17.210 Nicotine dependence, cigarettes, uncomplicated
CPT/HCPCS: 76870; 81001; 96374; 99285; J2270; J9999; Q0162

== ENCOUNTER → 2025-08-19 13:39 | Outpatient (BNVA) | payer OTHER, SELFPAY ==
[2025-01-05 13:07] VITALS: BP 110/72; BMI 27.8
== END ==
PROVIDERS: PCP Nurse Practitioner Family; Visit Provider Nurse Practitioner
DX: F33.2 Major depressive disorder, recurrent severe without psychotic features (principal); F43.12 Post-traumatic stress disorder, chronic; F12.20 Cannabis dependence, uncomplicated; Z79.899 Other long term (current) drug therapy
CPT/HCPCS: 80061; 83036

== ENCOUNTER → 2025-08-27 08:52 | Outpatient (BNVA) | payer MEDICARE, MEDICAID, SELFPAY ==
[2025-08-20 11:17] VITALS: BP 131/90; BMI 27.9
== END ==
PROVIDERS: PCP Nurse Practitioner Family; Visit Provider Nurse Practitioner Family
DX: L82.1 Other seborrheic keratosis (principal); L81.4 Other melanin hyperpigmentation; L82.0 Inflamed seborrheic keratosis; Z78.9 Other specified health status; L53.8 Other specified erythematous conditions; L29.89 Other pruritus; D48.5 Neoplasm of uncertain behavior of skin
CPT/HCPCS: 11102; 17110; 99213

== ENCOUNTER → 2025-09-02 08:58 | Outpatient (BNVA) | payer MEDICARE, MEDICAID, SELFPAY ==
[2025-08-20 11:17] VITALS: BP 131/90; BMI 27.9
== END ==
PROVIDERS: PCP Nurse Practitioner Family; Visit Provider Podiatrist Foot & Ankle Surgery
DX: L60.8 Other nail disorders (principal); B35.1 Tinea unguium
CPT/HCPCS: 99214